=== PATIENT | male | born 1955 | race Two or more races ===

== ENCOUNTER 2019-05-26 14:26 | Emergency (ER) | payer MEDICAID, OTHER ==
[~2019-05-26] VITALS: Ht 170.2 cm; Wt 77.1 kg
[~2019-05-26 14:26] MED LIST: ALBUTEROL SULF8.5 GM INH; AMBIEN5 MG ORAL; BENZTROPINE MESY1 MG PO; BUPROPION XL150 MG ORAL; FISH OIL 1,0001 EAC5 ORAL; FOLIC ACID1 MG ORAL; IBUPROFEN200 MG ORAL; IMODIUM2 MG ORAL; LATUDA20 MG PO; LEVAQUIN500 MG ORAL; LIPITOR10 MG ORAL; LOMOTIL TABLET1 EACH ORAL; LORAZEPAM1 MG ORAL; MINTOX MAXIMUM355 ML PO; MIRTAZAPINE30 MG ORAL; NORVASC5 MG ORAL; OMEPRAZOLE40 M1 ORAL; PROAIR HFA8.5 GM INH; PROPRANOLOL HCL10 MG ORAL; RISPERDAL2 MG ORAL; SYNTHROID50 MCG ORAL; TRAMADOL HCL50 MG ORAL; VITAMIN B-1100 MG ORAL; VOLTAREN-XR100 MG PO; WELLBUTRIN SR100 MG ORAL; ZITHROMAX250 MG ORAL; trazodone PO
--- NOTE | 2019-05-26 15:00 | NUR ---
ED Nurse Note: Patient found on the floor in front of ED, face down. AAO x1 at this moment; unable to answer questions. Patient was placed in hospital gown, cont. child monitor and cont. pulse ox. No respiratory distress noted at this time, patient is saturating 93% on room air. Patient vomiting; ERMD at bedside, aware.
--- NOTE | 2019-05-26 15:13 | NUR ---
ED Nurse Note: Patient taken down to CT via gurney.
[2019-05-26 15:17] VITALS: BP 121/75
[2019-05-26 15:49] LABS: BASOPHILS % (AUTO) 1.2 % (0.0-2.0); EOSINOPHILS % (AUTO) 1.3 % (0.0-3.0); HEMATOCRIT 48.9 % (42.0-52.0); HEMOGLOBIN 17.1 G/DL (14.2-18.0); LYMPHOCYTES % (AUTO) 37.2 % (20.0-45.0); MEAN CORPUSCULAR VOLUME 94 FL (80-99); MONOCYTES % (AUTO) 4.9 % (1.0-10.0); NEUTROPHILS % (AUTO) 55.4 % (45.0-75.0); PLATELET COUNT 378 K/UL (150-450); RED BLOOD COUNT 5.18 M/UL (4.70-6.10); RED CELL DISTRIBUTION WIDTH 10.7 % (11.6-14.8); WHITE BLOOD COUNT 9.7 K/UL (4.8-10.8)
[2019-05-26 15:50] LABS: ANION GAP 17 mmol/L (5-15); BLOOD UREA NITROGEN 7 mg/dL (7-18); CALCIUM 9.4 MG/DL (8.5-10.1); CARBON DIOXIDE 21 MMOL/L (21-32); CHLORIDE 103 MMOL/L (98-107); CREATININE 0.5 MG/DL (0.55-1.30); POTASSIUM 4.7 MMOL/L (3.5-5.1); SODIUM 141 MMOL/L (136-145)
[2019-05-26 15:55] LABS: ALANINE AMINOTRANSFERASE 30 U/L (12-78); ALBUMIN 3.6 G/DL (3.4-5.0); ALBUMIN/GLOBULIN RATIO 0.9 (1.0-2.7); ALKALINE PHOSPHATASE 119 U/L (46-116); ASPARTATE AMINO TRANSFERASE 47 U/L (15-37); BILIRUBIN,TOTAL 0.3 MG/DL (0.2-1.0)
--- NOTE | 2019-05-26 15:56 | NUR ---
ED Nurse Note: EKG done. Patient asleep, arousable to verbal stimuli. Unable to provide iurine at this time. No s/s pain/discomfort at this time. VSS. Will continue to monitor.
--- NOTE | 2019-05-26 16:11 | Diagnostic Imaging Report ---
Indications: Altered level of consciousness Technique: Spiral acquisitions obtained through the brain. Angled axial and coronal 5 x 5 mm slices were reconstructed. Total dose length product 1098 mGycm. CTDI vol(s) 53 mGy. Dose reduction achieved using automated exposure control Comparison: None. Findings: No acute intracranial hemorrhage or edema. No mass effect nor midline shift. There is minimal age-related prominence of the ventricles and extra axial CSF spaces. Old lacunar infarct versus prominent perivascular space is seen in the left basal ganglia. Orellana-white differentiation is normal. The calvarium is intact. The mastoids are clear. The visualized sinuses are clear. Impression: Chronic and age-related changes Negative for acute intracranial bleed or mass effect The CT scanner at [facility] is accredited by the [employer] and the scans are performed using protocols designed to limit radiation exposure to as low as reasonably achievable to attain images of sufficient resolution adequate for diagnostic evaluation.
--- NOTE | 2019-05-26 16:17 | Emergency Room Report ---
History of Present Illness General Chief Complaint: Generalized Weakness Source: Patient Present Illness HPI . 64-year-old male presents ED for evaluation of syncopal fall. Was found down in front of emergency room. Brought in by security. Patient vomiting. Lethargic. Not answering questions. Notes nausea. Denies headache. Denies chest pain or shortness of breath. Unable to provide any additional history at this time. No other aggravating relieving factors. Denies any other associated symptoms Allergies: Coded Allergies: No Known Allergies (Unverified , 02/11/14) Patient History Past Medical History: HTN, asthma, seizures Past Surgical History: none Pertinent Family History: none Social History: Reports: alcohol use; Denies: smoking, drug use Immunizations: UTD Reviewed Nursing Documentation: PMH: Agreed; PSxH: Agreed Nursing Documentation-PMH Past Medical History Deferred: Pt Cognitively Impaired Hx Cardiac Problems: Yes - HIGH CHOLESTEROL, HEP C Hx Hypertension: Yes Hx Pacemaker: No - HEP C Hx Asthma: Yes Hx Cancer: No Hx Gastrointestinal Problems: Yes Hx Neurological Problems: Yes Hx Parkinson's Disease: Yes Hx Seizures: Yes Review of Systems All Other Systems: negative except mentioned in HPI Physical Exam Vital Signs Date Time Temp Pulse Resp B/P (MAP) Pulse Ox O2 Delivery O2 Flow Rate FiO2 05/26/19 14:45 98.6 97 18 119/74 (89) 98 Room Air Sp02 EP Interpretation: reviewed, normal General Appearance: GCS 15, non-toxic, lethargic Head: normocephalic, atraumatic Eyes: bilateral eye normal inspection, bilateral eye PERRL ENT: hearing grossly normal, normal pharynx, no angioedema, normal voice Neck: full range of motion, supple/symm/no masses Respiratory: chest non-tender, lungs clear, normal breath sounds, speaking full sentences Cardiovascular #1: regular rate, rhythm, no edema Cardiovascular #2: 2+ carotid (R), 2+ carotid (L), 2+ radial (R), 2+ radial (L) , 2+ dorsalis pedis (R), 2+ dorsalis pedis (L) Gastrointestinal: normal bowel sounds, non tender, soft, non-distended, no guarding, no rebound Rectal: deferred Genitourinary: normal inspection, no CVA tenderness Musculoskeletal: back normal, normal range of motion, gait/station normal, non- tender Neurologic: alert, motor strength/tone normal, oriented x3, sensory intact, responsive, speech normal Psychiatric: other - lethargic Reflexes: 3+ bicep (R), 3+ bicep (L), 3+ tricep (R), 3+ tricep (L), 3+ knee (R) , 3+ knee (L) Skin: no rash Lymphatic: no adenopathy Medical Decision Making Diagnostic Impression: Primary Impression: Acute alcoholic intoxication Qualified Codes: F10.929 - Alcohol use, unspecified with intoxication, unspecified ER Course Hospital Course 64-year-old male presents ED found down. Altered. Differential diagnoses include: Psychosis, EtOH, drug abuse Clinical course patient placed on stretcher. On court recording monitor. After initial history and physical ordered labs, IV fluids, EKG, CT brain. Labs reviewed-electrolytes okay, no leukocytosis, hemoglobin/hematocrit stable, ETOH > 200 EKG - NSR, no acute ischemic changes interpreted by me CT brain shows no acute pathology Patient now alert oriented. Vitals stable. Came to credit front office developer angry and yelling very agitated. I asked patient to lower voice and remain calm he started becoming very threatening to myself and nursing staff. When we explained we will call security patient walked out without receiving his discharge papers i. I feel this is a highly complex case requiring extensive working including EKG/Rhythm strip, Xray/CT/US, Blood/urine lab work, repeat exams while in ED, and administration of strong opiates/narcotics for pain control, admission to hospital or close patient follow up. Diagnosis - acute alcohol intoxication Stable and discharged to home. Followup with PMD. Return to ED if symptoms recur or worsen Labs Test 05/26/19 15:00 White Blood Count 9.7 K/UL (4.8-10.8) Red Blood Count 5.18 M/UL (4.70-6.10) Hemoglobin 17.1 G/DL (14.2-18.0) Hematocrit 48.9 % (42.0-52.0) Mean Corpuscular Volume 94 FL (80-99) Mean Corpuscular Hemoglobin 33.1 PG (27.0-31.0) Mean Corpuscular Hemoglobin Concent 35.1 G/DL (32.0-36.0) Red Cell Distribution Width 10.7 % (11.6-14.8) Platelet Count 378 K/UL (150-450) Mean Platelet Volume 4.4 FL (6.5-10.1) Neutrophils (%) (Auto) 55.4 % (45.0-75.0) Lymphocytes (%) (Auto) 37.2 % (20.0-45.0) Monocytes (%) (Auto) 4.9 % (1.0-10.0) Eosinophils (%) (Auto) 1.3 % (0.0-3.0) Basophils (%) (Auto) 1.2 % (0.0-2.0) Sodium Level 141 MMOL/L (136-145) Potassium Level 4.7 MMOL/L (3.5-5.1) Chloride Level 103 MMOL/L (98-107) Carbon Dioxide Level 21 MMOL/L (21-32) Anion Gap 17 mmol/L (5-15) Blood Urea Nitrogen 7 mg/dL (7-18) Creatinine 0.5 MG/DL (0.55-1.30) Estimat Glomerular Filtration Rate > 60 mL/min (>60) Glucose Level 120 MG/DL (74-106) Calcium Level 9.4 MG/DL (8.5-10.1) Total Bilirubin 0.3 MG/DL (0.2-1.0) Aspartate Amino Transf (AST/SGOT) 47 U/L (15-37) Alanine Aminotransferase (ALT/SGPT) 30 U/L (12-78) Alkaline Phosphatase 119 U/L (46-116) Troponin I 0.000 ng/mL (0.000-0.056) Total Protein 7.5 G/DL (6.4-8.2) Albumin 3.6 G/DL (3.4-5.0) Globulin 3.9 g/dL Albumin/Globulin Ratio 0.9 (1.0-2.7) Salicylates Level 4.5 ug/mL (2.8-20) Acetaminophen Level < 2 MCG/ML (10-30) Serum Alcohol 269 mg/dL EKG Diagnostic Results Rate: normal Rhythm: NSR ST Segments: no acute changes ASA given to the pt in ED: No Rhythm Strip Diag. Results EP Interpretation: yes Rhythm: NSR, no PVC's, no ectopy CT/MRI/US Diagnostic Results CT/MRI/US Diagnostic Results : Imaging Test Ordered: CT head Impression Comparison: None. Findings: No acute intracranial hemorrhage or edema. No mass effect nor midline shift. There is minimal age-related prominence of the ventricles and extra axial CSF spaces. Old lacunar infarct versus prominent perivascular space is seen in the left basal ganglia. Orellana-white differentiation is normal. The calvarium is intact. The mastoids are clear. The visualized sinuses are clear. Impression: Chronic and age-related changes Negative for acute intracranial bleed or mass effect Last Vital Signs Date Time Temp Pulse Resp B/P (MAP) Pulse Ox O2 Delivery O2 Flow Rate FiO2 05/26/19 15:17 98.6 77 18 121/75 98 Room Air Status: improved Disposition: HOME, SELF-CARE Condition: Stable Jay Ch MD May 26, 2019 16:17
== END 2019-05-26 16:45 | disposition home or self-care (01) ==
LOC: EMR 16:45
DX: F10.129 Alcohol abuse with intoxication, unspecified (principal); I10 Essential (primary) hypertension; E78.00 Pure hypercholesterolemia, unspecified; Z86.19 Personal history of other infectious and parasitic diseases; G20 Parkinson's disease
CPT/HCPCS: 36415; 70450; 80053; 80307; 84484; 85025; 93005; 96361; 96374; G0480; G0481; J2405; J7030; Z7502; 99284

== ENCOUNTER 2019-08-17 01:34 | Emergency (ER) | payer MEDICAID ==
[~2019-08-17] VITALS: Ht 165.1 cm; Wt 68.0 kg
[2019-08-17 01:45] VITALS: BP 122/76
--- NOTE | 2019-08-17 01:45 | NUR ---
ED Nurse Note: Pt brought into ED by STEPHANIE RA 861 for c/o back and chest pain s/p fall. Pt had unwitnessed fall from ground level around 0100. No obvious trauma noted. Pt is aaox4, breathing is normal and unlabored, no cardiac distress.
--- NOTE | 2019-08-17 02:08 | Emergency Room Report ---
History of Present Illness General Chief Complaint: Multiple Trauma/Fall Source: Patient Present Illness HPI 64-year-old male presents the ED status post fall. Brought in by EMS. Reportedly had fall tonight. Landed on his chest. Complaining of chest wall pain and right hip pain. Dull, 7 out of 10, nonradiating. Positive EtOH. Questionable LOC. Denies drug use. Denies nausea or vomiting. No other aggravating relieving factors. Denies any other associated symptoms Allergies: Coded Allergies: No Known Allergies (Unverified , 02/11/14) COVID-19 Screening Contact w/high risk pt: No Recent Travel to affected area: No Experienced COVID-19 symptoms?: No COVID-19 Testing performed BUSHEL WORKER: No Patient History Past Medical History: HTN, asthma, GERD, psych hx Pertinent Family History: none Social History: Reports: alcohol use; Denies: smoking, drug use Immunizations: UTD Reviewed Nursing Documentation: PMH: Agreed; PSxH: Agreed Nursing Documentation-PMH Hx Cardiac Problems: Yes - HIGH CHOLESTEROL, HEP C Hx Hypertension: Yes Hx Pacemaker: No - HEP C Hx Asthma: Yes Hx Cancer: No Hx Gastrointestinal Problems: Yes History Of Psychiatric Problem: Yes Hx Neurological Problems: Yes Hx Parkinson's Disease: Yes Hx Seizures: Yes Review of Systems All Other Systems: negative except mentioned in HPI Physical Exam Vital Signs Date Time Temp Pulse Resp B/P (MAP) Pulse Ox O2 Delivery O2 Flow Rate FiO2 08/17/19 01:36 98.4 78 18 122/76 (91) 95 Room Air Sp02 EP Interpretation: reviewed, normal General Appearance: no apparent distress, alert, GCS 15, non-toxic Head: normocephalic, atraumatic Eyes: bilateral eye normal inspection, bilateral eye PERRL ENT: hearing grossly normal, normal pharynx, no angioedema, normal voice Neck: full range of motion, supple/symm/no masses Respiratory: lungs clear, normal breath sounds, speaking full sentences, other - reproducible chest wall pain Cardiovascular #1: regular rate, rhythm, no edema Cardiovascular #2: 2+ carotid (R), 2+ carotid (L), 2+ radial (R), 2+ radial (L) , 2+ dorsalis pedis (R), 2+ dorsalis pedis (L) Gastrointestinal: normal bowel sounds, non tender, soft, non-distended, no guarding, no rebound Rectal: deferred Genitourinary: normal inspection, no CVA tenderness Musculoskeletal: back normal, normal range of motion, gait/station normal, tender - R hip Neurologic: alert, motor strength/tone normal, oriented x3, sensory intact, responsive, speech normal Psychiatric: judgement/insight normal, memory normal, mood/affect normal, no suicidal/homicidal ideation Reflexes: 3+ bicep (R), 3+ bicep (L), 3+ tricep (R), 3+ tricep (L), 3+ knee (R) , 3+ knee (L) Lymphatic: no adenopathy Medical Decision Making Diagnostic Impression: Primary Impression: Acute alcoholic intoxication Qualified Codes: F10.929 - Alcohol use, unspecified with intoxication, unspecified Additional Impression: Multiple injuries due to trauma ER Course Hospital Course 64 yo M presents with chest wall pain, R hip pain s/p Fall. + ETOH Differential diagnoses include: Fracture, dislocation, sprain, contusion Clinical course Patient placed on stretcher. After initial history and physical, I ordered CT head, CXR and Xray R hip Xrays read shows no acute fracture/dislocation. CT Head negative Patient allowed to sleep. Given food. Observed on monitor car operator with stable vitals. Now alert and oriented x3. Clinically sober. Safe for discharge close outpatient follow-up. Diagnosis - alcohol intoxication, multiple injuries due to trauma Stable and discharged to home. apply ice, keep elevated. weight bear as tolerated. Followup with PMD. Return to ED if symptoms recur or worsen Chest X-Ray Diagnostic Results Chest X-Ray Diagnostic Results : Chest X-Ray Ordered: Yes # of Views/Limited/Complete: 1 View Indication: Chest Pain EP Interpretation: Yes Interpretation: no consolidation, no effusion, no pneumothorax, no acute cardiopulmonary disease Impression: No acute disease Electronically Signed by: Electronically signed by Jay Ch MD Other X-Ray Diagnostic Results Other X-Ray Diagnostic Results : X-Ray ordered: R hip # of Views/Limited Vs Complete: 3 View Indication: Pain EP Interpretation: Yes Interpretation: no dislocation, no soft tissue swelling, no fractures Impression: No acute disease Electronically Signed by: Electronically signed by Jay Ch MD CT/MRI/US Diagnostic Results CT/MRI/US Diagnostic Results : Imaging Test Ordered: CT Head Impression no acute process Last Vital Signs Date Time Temp Pulse Resp B/P (MAP) Pulse Ox O2 Delivery O2 Flow Rate FiO2 08/17/19 01:45 98.4 77 18 122/76 95 Room Air Status: improved Disposition: HOME, SELF-CARE Condition: Stable Referrals: OTHER,REFERRING (PCP) Jay Ch MD August 17, 2019 02:08
--- NOTE | 2019-08-17 02:42 | Diagnostic Imaging Report ---
EXAM: CT Head Without Intravenous Contrast CLINICAL HISTORY: FALL TECHNIQUE: Axial computed tomography images of the head/brain without intravenous contrast. CTDI is 107 mGy and DLP is 2171 mGy-cm. One or more of the following dose reduction techniques were used: automated exposure control, adjustment of the mA and/or kV according to patient size, use of iterative reconstruction technique. COMPARISON: No relevant prior studies available. FINDINGS: Brain: Parenchymal atrophy. No intracranial hemorrhage, mass-effect, or edema. Chronic lacunar infarct within the left basal ganglia. Ventricles: No hydrocephalus. Bones/joints: Unremarkable. Soft tissues: Unremarkable. Sinuses: Unremarkable as visualized. Mastoid air cells: Unremarkable as visualized. IMPRESSION: No acute findings in the head/brain.
--- NOTE | 2019-08-17 02:43 | Diagnostic Imaging Report ---
EXAM: XR Right Hip With Pelvis When Performed, 2 or 3 Views CLINICAL HISTORY: FALL TECHNIQUE: Two or three views of the right hip with pelvis when performed. COMPARISON: No relevant prior studies available. FINDINGS: Bones/joints: Unremarkable. No acute fracture. No dislocation. Soft tissues: Unremarkable. IMPRESSION: No fracture or malalignment.
--- NOTE | 2019-08-17 02:44 | Diagnostic Imaging Report ---
EXAM: XR Chest, 1 View CLINICAL HISTORY: FALL TECHNIQUE: Frontal view of the chest. COMPARISON: No relevant prior studies available. FINDINGS: Lungs: Unremarkable. No consolidation. Pleural space: No pleural effusion. No pneumothorax. Heart: Unremarkable. No cardiomegaly. Bones/joints: No fracture. IMPRESSION: No radiographically evident traumatic injury.
[2019-08-17 05:35] VITALS: BP 125/91
--- NOTE | 2019-08-17 05:35 | NUR ---
ER DISCHARGE NOTE: Patient is cleared to be discharged per ERMD, pt is aox4, on room air, with stable vital signs. pt was given dc instructions, pt was able to verbalize understanding, pt id band removed. pt is able to ambulate with steady gait. pt took all belongings.
[2019-08-17] MEDS ORDERED: VISTARIL25 M1 PO ×2 (21:34)
[2019-08-17] MEDS ORDERED: FAMOTIDINE20 MG ORAL ×2 (21:34)
[2019-08-17] MEDS ORDERED: ONDANSETRON ODT4 MG BC ×2 (21:34)
[2019-08-18] MEDS ORDERED: LIBRIUM25 MG ORAL (00:43)
== END 2019-08-17 05:35 | disposition home or self-care (01) ==
LOC: EDUNIT# 01:34 → EDBD 01:34 → EMR 01:45
DX: F10.129 Alcohol abuse with intoxication, unspecified (principal); M25.551 Pain in right hip; R07.9 Chest pain, unspecified; K21.9 Gastro-esophageal reflux disease without esophagitis; E78.00 Pure hypercholesterolemia, unspecified; Z86.19 Personal history of other infectious and parasitic diseases; G20 Parkinson's disease; G40.909 Epilepsy, unspecified, not intractable, without status epilepticus
CPT/HCPCS: 70450; 71045; 73501; Z7502; 99284

== ENCOUNTER 2019-08-17 17:23 | Emergency (ER) | payer MEDICAID ==
[~2019-08-17] VITALS: Ht 175.3 cm; Wt 71.2 kg
--- NOTE | 2019-08-17 17:23 | NUR ---
ED Nurse Note: PT arrived with RA 861 d/t alcohol withdrawal. pt denies pain at this time. pt reports his last alcoholic beverage was this morning and he states that he has been experiencing tremors. pt vss stable, no acute distress noted at this time pt skin is warm to touch; no diaphoresis. pt is aox4, room air sating at 99%. pt is calm and cooperative. no delusions thoughts.
[2019-08-17 17:24] VITALS: BP 118/70
--- NOTE | 2019-08-17 17:25 | NUR ---
ED Nurse Note: PT report back pain, pt also states that he is having troubel breathing. rechecked O2 sat at bedside. pt shows 91% on room air. informed ermd; pt placed on 1 L Nasal cannula. iV line established; patent and intact. Blood specimen sent to lab.
--- NOTE | 2019-08-17 17:26 | NUR ---
ED Nurse Note: Pt O2 is at 94% on 1 L nasal cannula, lights dimmed for pt comfort
[2019-08-17] MEDS ORDERED: LORazepam Inj 2mg/ml 1ml IV ONE (17:30)
[2019-08-17] MEDS ORDERED: Thiamine HCl 100 MG in D5W 55 ML IV ONE (17:30)
--- NOTE | 2019-08-17 17:33 | Emergency Room Report ---
History of Present Illness General Chief Complaint: To Be Triaged Source: Patient, EMS Present Illness HPI Patient is brought from a motel by EMS complaining of alcohol withdrawal.. He states he is having alcohol withdrawal at this time. Last time he was drinking alcohol was . He was seen last night for back pain. He had a CT of the head chest x-ray and hip x-ray. He was discharged early this morning. No laboratory was performed. He is complaining about nausea. He is not vomiting. There is no hematemesis. He denies melena. There is no head trauma. He states that he has had seizures in the past but is not taking medication. He denies recent seizure. The patient's been seen in the past for acute alcohol intoxication. In addition in the past he is was seen for suicidal ideation. In 2015 he was placed on hold and transferred to [facility]. Patient denies suicidal ideation at this time. No fevers, sore throat, chest pain, palpitations, vomiting, diarrhea, dysuria, abdominal pain, shortness of breath, rashes, visual changes, dizziness, headache. History of hepatitis C. Allergies: Coded Allergies: No Known Allergies (Unverified , 02/11/14) COVID-19 Screening Contact w/high risk pt: No Recent Travel to affected area: No Experienced COVID-19 symptoms?: No COVID-19 Testing performed BAG HANGER: No Patient History Past Medical History: see triage record Social History: Reports: alcohol use; Denies: drug use Social History Narrative in motel for some reason with problem with room mate Reviewed Nursing Documentation: PMH: Agreed; PSxH: Agreed Nursing Documentation-PMH Hx Hypertension: Yes Hx Pacemaker: No - HEP C Hx Asthma: Yes Hx Cancer: No Hx Gastrointestinal Problems: Yes History Of Psychiatric Problem: Yes Hx Neurological Problems: Yes Hx Parkinson's Disease: Yes Hx Seizures: Yes Review of Systems All Other Systems: negative except mentioned in HPI Physical Exam Vital Signs Date Time Temp Pulse Resp B/P (MAP) Pulse Ox O2 Delivery O2 Flow Rate FiO2 08/17/19 17:18 98.4 98 29 118/70 (86) 99 Room Air Sp02 EP Interpretation: reviewed, normal General Appearance: no apparent distress, GCS 15, non-toxic, other - Alcohol on breath Head: normocephalic Eyes: bilateral eye PERRL, bilateral eye EOMI, bilateral eye Scleral Injection ENT: moist mucus membranes - No lingual macerations Neck: full range of motion, supple Respiratory: chest non-tender, lungs clear, normal breath sounds Cardiovascular #1: regular rate, rhythm, no edema Cardiovascular #2: 2+ radial (R) Gastrointestinal: normal inspection, non tender, no mass, non-distended, abnormal bowel sounds - Decreased Genitourinary: no CVA tenderness Musculoskeletal: back normal, normal range of motion, gait/station normal Neurologic: alert, DTRs symmetric, oriented x3, sensory intact, cerebellar normal, speech normal Psychiatric: no suicidal/homicidal ideation, anxious Skin: no rash, warm/dry Medical Decision Making Diagnostic Impression: Primary Impression: Acute alcoholic intoxication Qualified Codes: F10.929 - Alcohol use, unspecified with intoxication, unspecified ER Course Patient here with a complaint of alcohol withdrawal. He states his last drink was last . He does smell of alcohol at this time. Differential includes alcohol withdrawal, alcohol intoxication, electrolyte imbalance, acute myocardial infarction, alcoholic gastritis, anxiety amongst others. Evaluation with EKG and labs. Treatment with IV hydration, thiamine and a dose of Ativan. EKG without injury. Prior chest x-ray reviewed and unremarkable. CT the head also reviewed and unremarkable. Labs significant for elevated transaminases and elevated blood alcohol of 274. Patient sleeping after IV hydration, thiamine and Ativan. Not tremulous, oriented, no delusions. Not tachycardic. Ate several sandwiches and drink liquids with tolerating oral intake without difficulty. Discussed treatment plan with patient. He is requesting to stay overnight. Discussed that based on his blood alcohol level and symptoms and signs at this time I felt he was stable for outpatient observation and treatment. Advised patient that he needed to have follow-up with Alcoholics Anonymous and also his private physician. He is familiar with this organization. Discussed medications that should help him with his symptoms at this time. No medical emergency at this time. Patient stable for outpatient observation and treatment. Laboratory Tests Test 08/17/19 17:30 08/17/19 19:50 White Blood Count 6.9 K/UL (4.8-10.8) Red Blood Count 4.21 M/UL (4.70-6.10) L Hemoglobin 14.0 G/DL (14.2-18.0) L Hematocrit 43.6 % (42.0-52.0) Mean Corpuscular Volume 104 FL (80-99) H Mean Corpuscular Hemoglobin 33.3 PG (27.0-31.0) H Mean Corpuscular Hemoglobin Concent 32.1 G/DL (32.0-36.0) Red Cell Distribution Width 13.9 % (11.6-14.8) Platelet Count 398 K/UL (150-450) Mean Platelet Volume 5.1 FL (6.5-10.1) L Neutrophils (%) (Auto) 53.6 % (45.0-75.0) Lymphocytes (%) (Auto) 38.5 % (20.0-45.0) Monocytes (%) (Auto) 5.9 % (1.0-10.0) Eosinophils (%) (Auto) 0.5 % (0.0-3.0) Basophils (%) (Auto) 1.6 % (0.0-2.0) Prothrombin Time 9.4 SEC (9.30-11.50) Prothrombin Time INR 0.8 (0.9-1.1) L Sodium Level 143 MMOL/L (136-145) Potassium Level 3.9 MMOL/L (3.5-5.1) Chloride Level 101 MMOL/L (98-107) Carbon Dioxide Level 26 MMOL/L (21-32) Anion Gap 17 mmol/L (5-15) H Blood Urea Nitrogen 14 mg/dL (7-18) Creatinine 1.0 MG/DL (0.55-1.30) Estimated Glomerular Filtration Rate > 60 mL/min (>60) Glucose Level 81 MG/DL (74-106) Calcium Level 8.6 MG/DL (8.5-10.1) Magnesium Level 2.1 MG/DL (1.8-2.4) Total Bilirubin 0.6 MG/DL (0.2-1.0) Aspartate Amino Transferase (AST) 329 U/L (15-37) H Alanine Aminotransferase (ALT) 145 U/L (12-78) H Alkaline Phosphatase 169 U/L (46-116) H Total Creatine Kinase 186 U/L (26-308) Troponin I 0.003 ng/mL (0.000-0.056) Total Protein 7.5 G/DL (6.4-8.2) Albumin 3.6 G/DL (3.4-5.0) Globulin 3.9 g/dL Albumin/Globulin Ratio 0.9 (1.0-2.7) L Lipase 247 U/L (73-393) Salicylates Level 4.6 ug/mL (2.8-20) Acetaminophen Level < 2 MCG/ML (10-30) L Serum Alcohol 274 mg/dL Urine Color Yellow Urine Appearance Clear Urine pH 6 (4.5-8.0) Urine Specific [place] 1.020 (1.005-1.035) Urine Protein 3+ (NEGATIVE) H Urine Glucose (UA) Negative (NEGATIVE) Urine Ketones 4+ (NEGATIVE) H Urine Blood 2+ (NEGATIVE) H Urine Nitrite Negative (NEGATIVE) Urine Bilirubin Negative (NEGATIVE) Urine Urobilinogen 4 MG/DL (0.0-1.0) H Urine Leukocyte Esterase 1+ (NEGATIVE) H Urine RBC 2-4 /HPF (0 - 0) H Urine WBC 5-10 /HPF (0 - 0) H Urine Squamous Epithelial Cells Occasional /LPF Urine Bacteria Few /HPF (NONE) Urine Mucus Many /LPF (NONE/OCC) H Urine Opiates Screen Negative (NEGATIVE) Urine Barbiturates Screen Negative (NEGATIVE) Phencyclidine (PCP) Screen Negative (NEGATIVE) Urine Amphetamines Screen Negative (NEGATIVE) Urine Benzodiazepines Screen Positive (NEGATIVE) H Urine Cocaine Screen Negative (NEGATIVE) Urine Marijuana (THC) Screen Negative (NEGATIVE) EKG Diagnostic Results Rate: normal Rhythm: NSR ST Segments: no acute changes - QT prolonged Rhythm Strip Diag. Results EP Interpretation: yes Rhythm: NSR, no PVC's, no ectopy Last Vital Signs Date Time Temp Pulse Resp B/P (MAP) Pulse Ox O2 Delivery O2 Flow Rate FiO2 08/17/19 21:50 98.4 90 20 120/82 99 Room Air Status: improved Disposition: HOME, SELF-CARE Condition: Improved Shivam Rosas MD August 17, 2019 17:33
--- NOTE | 2019-08-17 17:38 | NUR ---
ED Nurse Note: Pt offered jeremy per pt request
[2019-08-17 17:47] LABS: BASOPHILS % (AUTO) 1.6 % (0.0-2.0); EOSINOPHILS % (AUTO) 0.5 % (0.0-3.0); HEMATOCRIT 43.6 % (42.0-52.0); LYMPHOCYTES % (AUTO) 38.5 % (20.0-45.0); MEAN CORPUSCULAR VOLUME 104 FL (80-99); MONOCYTES % (AUTO) 5.9 % (1.0-10.0); NEUTROPHILS % (AUTO) 53.6 % (45.0-75.0); PLATELET COUNT 398 K/UL (150-450); RED BLOOD COUNT 4.21 M/UL (4.70-6.10); RED CELL DISTRIBUTION WIDTH 13.9 % (11.6-14.8); WHITE BLOOD COUNT 6.9 K/UL (4.8-10.8)
[2019-08-17 17:52] LABS: INR 0.8 (0.9-1.1)
--- NOTE | 2019-08-17 17:53 | NUR ---
ED Nurse Note: pt shows right forearm skin lesion of unknown etiology. injury is a non opened wound. appears to be previous abrasion. redness/scabbing noted.
[2019-08-17 17:54] LABS: ANION GAP 17 mmol/L (5-15); BLOOD UREA NITROGEN 14 mg/dL (7-18); CALCIUM 8.6 MG/DL (8.5-10.1); CARBON DIOXIDE 26 MMOL/L (21-32); CHLORIDE 101 MMOL/L (98-107); POTASSIUM 3.9 MMOL/L (3.5-5.1); SODIUM 143 MMOL/L (136-145)
[2019-08-17 17:58] LABS: ALANINE AMINOTRANSFERASE 145 U/L (12-78); ALBUMIN 3.6 G/DL (3.4-5.0); ALBUMIN/GLOBULIN RATIO 0.9 (1.0-2.7); ALKALINE PHOSPHATASE 169 U/L (46-116); ASPARTATE AMINO TRANSFERASE 329 U/L (15-37); BILIRUBIN,TOTAL 0.6 MG/DL (0.2-1.0); CREATINE KINASE 186 U/L (26-308)
[2019-08-17] MEDS ORDERED: Sodium Bicarbonate 100 ML in D5W 1000ml 1,000 ML IV SCH (18:45)
--- NOTE | 2019-08-17 18:47 | NUR ---
ED Nurse Note: PER ermd do not administer bicarb with D5W; missed ordered on incorrect pt. orders not carried out.
--- NOTE | 2019-08-17 18:50 | NUR ---
ED Nurse Note: pt in bed currently asleep. continuing iv fluid orders. pt saturation at 99% 1 L nasal cannula. no acute distress noted.
--- NOTE | 2019-08-17 18:57 | NUR ---
HAND-OFF: Report given to DINO Delacruz endorsed that ERMD verbally ordered to not administer D5W with bicarb due to incorrect pt. no further orders at this time.
--- NOTE | 2019-08-17 19:50 | NUR ---
ED Nurse Note: Urine collected and sent to lab.
[2019-08-17 20:30] LABS: APPEARANCE,URINE CLEAR; BILIRUBIN, URINE NEGATIVE (NEGATIVE); GLUCOSE, URINE (UA) NEGATIVE (NEGATIVE); KETONES,URINE 4+ (NEGATIVE); LEUKOCYTE ESTERASE ,URINE 1+ (NEGATIVE); NITRITE,URINE NEGATIVE (NEGATIVE); PH,URINE 6 (4.5-8.0); PROTEIN,URINE 3+ (NEGATIVE); UROBILINOGEN,URINE 4 MG/DL (0.0-1.0)
[2019-08-17 20:36] LABS: COLOR,URINE YELLOW
[2019-08-17] MEDS ORDERED: VISTARIL25 M1 PO ×2 (21:34)
[2019-08-17] MEDS ORDERED: ONDANSETRON ODT4 MG BC ×2 (21:34)
[2019-08-17] MEDS ORDERED: FAMOTIDINE20 MG ORAL ×2 (21:34)
[2019-08-17 21:50] VITALS: BP 120/82
--- NOTE | 2019-08-17 21:50 | NUR ---
ER DISCHARGE NOTE: Patient is cleared to be discharged per ERMD, pt is aox4, on room air, with stable vital signs. pt was given dc and prescription instructions, pt was able to verbalize understanding, pt id band and iv site removed without complications. pt is able to ambulate with steady gait. pt took all belongings.
[2019-08-18] MEDS ORDERED: LIBRIUM25 MG ORAL (00:43)
== END 2019-08-17 21:50 | disposition home or self-care (01) ==
LOC: EDBD 17:23 → EMR 17:45
DX: F10.129 Alcohol abuse with intoxication, unspecified (principal); R11.0 Nausea; I10 Essential (primary) hypertension; Z86.19 Personal history of other infectious and parasitic diseases
CPT/HCPCS: 36415; 80053; 80307; 81003; 82550; 83690; 83735; 84484; 85025; 85610; 93005; 96361; 96365; 96375; G0480; G0481; J7030; Z7502; 99284

== ENCOUNTER → 2019-08-18 | Emergency (ER) | payer MEDICAID ==
[~2019-08-18] VITALS: Ht 170.2 cm; Wt 81.6 kg
[~2019-08-18] MED LIST changes: +FAMOTIDINE20 MG ORAL; +LIBRIUM25 MG ORAL; +LORazepam Inj 2mg/ml 1ml IM ONE; +ONDANSETRON ODT4 MG BC; +VISTARIL25 M1 PO; +chlordiazePOXIDE 25mg Cap ORAL ONE
[2019-08-18 00:35] VITALS: BP 134/86
--- NOTE | 2019-08-18 00:35 | NUR ---
ED Nurse Note: Pt brought into ED by STEPHANIE KHAN 62 for c/o alcohol withdrawl and tremors. Pt is saying he needs ativan and can't stop shaking. [place] [facility] [place]. Pt is aaox4, no respiratory or cardiac distress and is ambulatory with steady gait.
--- NOTE | 2019-08-18 00:40 | Emergency Room Report ---
History of Present Illness General Chief Complaint: Alcohol Intoxication Source: Patient Present Illness HPI This is a 64-year-old male who is an alcoholic. He called 911 complaint of alcohol withdrawal. He said he last drank over 36 hours ago. He was just here and discharged a few hours ago. Around 5:30 PM his alcohol level was 274. He said he has not drank since then. He said he felt shaky. No fever chills but no nausea no vomiting. He said he wants some Ativan. Denies any other complaint. Denies suicidal thoughts homicidal thought. Nothing made it better. Nothing made it worse. Allergies: Coded Allergies: No Known Allergies (Unverified , 02/11/14) COVID-19 Screening Contact w/high risk pt: No Recent Travel to affected area: No Experienced COVID-19 symptoms?: No COVID-19 Testing performed EN[employer]ELOPE ADDRESSER: No Patient History Past Medical History: see triage record, old chart reviewed Past Surgical History: none Pertinent Family History: none Social History: Reports: alcohol use Immunizations: other Reviewed Nursing Documentation: PMH: Agreed; PSxH: Agreed Nursing Documentation-PMH Hx Hypertension: Yes Hx Pacemaker: No - HEP C Hx Asthma: Yes Hx Cancer: No Hx Gastrointestinal Problems: Yes Hx Neurological Problems: Yes Hx Parkinson's Disease: Yes Hx Seizures: Yes Review of Systems Eye: Denies: eye pain, blurred vision ENT: Denies: ear pain, nose congestion, throat swelling Respiratory: Denies: cough, shortness of breath Cardiovascular: Denies: chest pain, palpitations Gastrointestinal: Denies: abdominal pain, diarrhea, nausea, vomiting Musculoskeletal: Denies: back pain, joint pain Skin: Denies: rash Neurological: Denies: headache, numbness Endocrine: Denies: increased thirst, increased urine Hematologic/Lymphatic: Denies: easy bruising All Other Systems: negative except mentioned in HPI Physical Exam Vital Signs Date Time Temp Pulse Resp B/P (MAP) Pulse Ox O2 Delivery O2 Flow Rate FiO2 08/18/19 00:33 98.8 107 18 134/86 (102) 97 Room Air Vitals with mild tachycardia Sp02 EP Interpretation: reviewed, normal General Appearance: well appearing, no apparent distress, alert Head: normocephalic, atraumatic Eyes: bilateral eye PERRL, bilateral eye EOMI ENT: hearing grossly normal, normal pharynx Neck: full range of motion, supple, no meningismus Respiratory: chest non-tender, lungs clear, normal breath sounds Cardiovascular #1: regular rate, rhythm, no murmur Gastrointestinal: normal bowel sounds, non tender, no mass, no organomegaly, no bruit, non-distended Musculoskeletal: back normal, normal range of motion, gait/station normal Neurologic: other - Tremulous, mild Psychiatric: mood/affect normal Medical Decision Making Diagnostic Impression: Primary Impression: Alcohol withdrawal Qualified Codes: F10.230 - Alcohol dependence with withdrawal, uncomplicated ER Course Patient with mild alcohol withdrawal symptoms. No evidence of suicidal thoughts homicidal thought. Vitals otherwise stable. Better with Ativan and Librium. Will discharge home. Last Vital Signs Date Time Temp Pulse Resp B/P (MAP) Pulse Ox O2 Delivery O2 Flow Rate FiO2 08/18/19 00:33 98.8 107 18 134/86 (102) 97 Room Air Status: improved Disposition: HOME, SELF-CARE Condition: Stable Scripts Chlordiazepoxide (Chlordiazepoxide HCl) 25 Mg Capsule 25 MG ORAL THREE TIMES A DAY, #15 CAP 0 Refills Prov: Jam Lees MD 08/18/19 Additional Instructions: Stop drinking alcohol. Go to rehab. Follow-up with your doctor in 7 days but return if symptoms worsen. Jam Lees MD August 18, 2019 00:40
[2019-08-18 02:05] VITALS: BP 129/80
--- NOTE | 2019-08-18 02:05 | NUR ---
ER DISCHARGE NOTE: Patient is cleared to be discharged per ERMD, pt is aox4, on room air, with stable vital signs. pt was given dc and prescription instructions, pt was able to verbalize understanding, pt id band removed. pt is able to ambulate with steady gait. pt took all belongings.
== END | disposition home or self-care (01) ==
LOC: EDUNIT# 00:26 → EDBD 00:26 → EMR 00:38
DX: F10.230 Alcohol dependence with withdrawal, uncomplicated (principal); I10 Essential (primary) hypertension; Z86.19 Personal history of other infectious and parasitic diseases; G20 Parkinson's disease; G40.909 Epilepsy, unspecified, not intractable, without status epilepticus
CPT/HCPCS: 96372; Z7502; 99283

== ENCOUNTER 2019-08-28 16:33 | Emergency (ER) | payer MEDICAID ==
[~2019-08-28] VITALS: Ht 167.6 cm; Wt 59.0 kg
[~2019-08-28 16:33] MED LIST changes: -LORazepam Inj 2mg/ml 1ml IM ONE; -chlordiazePOXIDE 25mg Cap ORAL ONE
[2019-08-28 16:37] VITALS: BP 98/63
[2019-08-28] MEDS ORDERED: ATIVAN0.5 MG ORAL (16:42)
[2019-08-28] MEDS ORDERED: METOPROLOL SUCC25 MG ORAL (16:42)
--- NOTE | 2019-08-28 16:47 | NUR ---
ED Nurse Note: Pt brought in by RA 8[facility] from a hotel due to behavioral complaint. Per EMS, pt is complaining of lower back pain and called his PCP and stated that he wants to kill himself but has no specific plans. Pt is placed on 5150 HOLD by [employer]. Toni Lowe at the bed side.
--- NOTE | 2019-08-28 17:00 | NUR ---
ED Nurse Note: Belongings placed on psych locker #3.
--- NOTE | 2019-08-28 17:13 | NUR ---
ED Nurse Note: Surrendered pt's roman $955 with wrist watch and necklace with cross pendant to [employer].
--- NOTE | 2019-08-28 17:33 | NUR ---
ED Nurse Note: Collected blood then sent. Pt unable to provide urine sample at this time.
--- NOTE | 2019-08-28 17:34 | Emergency Room Report ---
History of Present Illness General Chief Complaint: Back Pain-No Injury Source: Patient (Michelle Jaimes) Present Illness HPI 64 YO Male presents to the ED c/o 01/09 in severity Lower back pain with radiation to his right leg. Pt. reports chronic back pain. Recently hospitalized at [facility] 07/31 for 19 days regarding back pain. Pt. reports 10 days ago he Fell and had exacerbation of his pain. Pt. reports due to chronic pain he is now having SI. He is "tired of being in pain" pt. is also reporting being kicked out of his house recently. Pt. reports hx of Depression, on Wellbutrin and Ativan pt. reports 1 PSA years ago where he attempted to lacerate his left wrist. Pt. reports he called his psychologist today and spoke with her. His psychologist contacted EMS. Pt. arrived by EMS accompanied by [employer] and was subsequently placed on 5150 hold by [employer]. Denies numbness tingling or loss of sensation or gross motor movements of the extremities, incontinence of bowel or bladder. Denies CP, Palpitations, LOC, AMS, dizziness, Changes in Vision, weakness or a sudden severe headache. Denies neck pain. Pt. also with hx of Hep. C. He denies ETOH or Drug use. (Michelle Jaimes) Allergies: Coded Allergies: No Known Allergies (Unverified , 02/11/14) COVID-19 Screening Contact w/high risk pt: No Recent Travel to affected area: No Experienced COVID-19 symptoms?: No COVID-19 Testing performed [employer]OOM TEACHER: No (Michelle Jaimes) Patient History Past Medical History: see triage record, psych hx - depression, other - chronic low back pain. Past Surgical History: none Pertinent Family History: none Social History: Reports: alcohol use Reviewed Nursing Documentation: PMH: Agreed; PSxH: Agreed (Michelle Jaimes) Nursing Documentation-PMH Hx Hypertension: Yes Hx Pacemaker: No - HEP C Hx Asthma: Yes Hx Cancer: No Hx Gastrointestinal Problems: Yes Hx Neurological Problems: Yes Hx Parkinson's Disease: Yes Hx Seizures: Yes (Michelle Jaimes) Review of Systems All Other Systems: negative except mentioned in HPI (Michelle Jaimes) Physical Exam Vital Signs Date Time Temp Pulse Resp B/P (MAP) Pulse Ox O2 Delivery O2 Flow Rate FiO2 08/28/19 16:37 98.4 103 16 98/63 (75) 98 Room Air Sp02 EP Interpretation: reviewed, normal General Appearance: no apparent distress, alert, GCS 15, non-toxic, thin Head: normocephalic, atraumatic Eyes: bilateral eye normal inspection, bilateral eye PERRL ENT: hearing grossly normal, normal voice Neck: full range of motion Respiratory: chest non-tender, lungs clear, normal breath sounds, no wheezing, speaking full sentences Cardiovascular #1: regular rate, rhythm, no edema, normal capillary refill Gastrointestinal: normal bowel sounds, non tender, soft, non-distended, no guarding Rectal: deferred Genitourinary: normal inspection, no CVA tenderness Musculoskeletal: normal range of motion, gait/station normal, tender - TTP to the L-spine, midline as well as paraspinal musculature. radiation to right hip. FROM with pain. POC is lying flat. Neurologic: alert, motor strength/tone normal, oriented x3, sensory intact, responsive, speech normal Psychiatric: judgement/insight normal, memory normal Suicide Risk Assessment: Suicidal Ideation: Yes Had intent to initiate attempt: Yes Pt's plan for suicide attempt: Yes - Pt. indicates slashing his neck Has means to complete attempt: Yes - Pt. Skin: abrasion - multiple abrasions in different stages of healing on the extremities. , other - previous wrist laceration scare notable on the left wrist Lymphatic: no adenopathy (Michelle Jaimes) Medical Decision Making PA Attestation Dr. Hyman is my supervising Physician whom patient management has been discussed with. (Michelle Jaimes) PA Attestation I participate in the care of this patient along with TARIK Rojas. Briefly, this is a 64-year-old male presenting for low back pain and suicidality. The patient was placed on a 5150 hold by [employer] after stating that he was so tired of the pain that he was going to kill himself. His psychiatrist contacted EMS and [employer]. He has had previous suicide attempts with self-inflicted lacerations. He arrives intoxicated with elevated alcohol level. A CT scan of his spine was obtained showing L1 superior endplate compression fracture without significant vertebral height loss. Patient will be allowed to metabolize the alcohol and have a recheck prior to psychiatric placement for evaluation of suicidality. He was given oral potassium for slightly low levels. (Moe Hyman MD) Diagnostic Impression: Primary Impression: Lumbar compression fracture Qualified Codes: S32.010A - Wedge compression fracture of first lumbar vertebra, initial encounter for closed fracture Additional Impressions: Behavioral change Acute alcoholic intoxication Qualified Codes: F10.920 - Alcohol use, unspecified with intoxication, uncomplicated Suicidal ideation ER Course 64 YO Male presents to the ED c/o 01/09 in severity Lower back pain with radiation to his right leg. Pt. reports chronic back pain. Recently hospitalized at [facility] 07/31 for 19 days regarding back pain. Pt. reports 10 days ago he Fell and had exacerbation of his pain. Pt. reports due to chronic pain he is now having SI. He is "tired of being in pain" pt. is also reporting being kicked out of his house recently. Pt. reports hx of Depression, on Wellbutrin and Ativan pt. reports 1 PSA years ago where he attempted to lacerate his left wrist. Pt. reports he called his psychologist today and spoke with her. His psychologist contacted EMS. Pt. arrived by EMS accompanied by [employer] and was subsequently placed on 5150 hold by [employer]. Denies numbness tingling or loss of sensation or gross motor movements of the extremities, incontinence of bowel or bladder. Denies CP, Palpitations, LOC, AMS, dizziness, Changes in Vision, weakness or a sudden severe headache. Denies neck pain. Pt. also with hx of Hep. C. He denies ETOH or Drug use. Pt is tearful with depressed affect. Ddx considered but are not limited to OD, SI/HI, psychosis, UTI, intoxication, Fracture, contusion, spinal chord injury, sciatica, chronic pain syndrome, alcoholism just to name a few. Vital signs: are WNL, pt. is afebrile H&PE are most consistent with behavioral/mental health issue ORDERS: -CBC, CMP: WNL, mild hypokalemia -UA: negative for infection see results attached. -UDS: negative -Salicylates and Acetaminophen - no acute intoxication. - Serum ETOH: 356 - Ct L-Spine No Contrast: L1 compression fx. ED INTERVENTIONS: - - 1mg Ativan - pt. was becoming agitated with bedside sitter. DISPOSITION: PT. signed out to attending physician. Labs Test 08/28/19 17:30 08/28/19 18:17 White Blood Count 6.4 K/UL (4.8-10.8) Red Blood Count 3.67 M/UL (4.70-6.10) Hemoglobin 12.5 G/DL (14.2-18.0) Hematocrit 38.7 % (42.0-52.0) Mean Corpuscular Volume 105 FL (80-99) Mean Corpuscular Hemoglobin 33.9 PG (27.0-31.0) Mean Corpuscular Hemoglobin Concent 32.2 G/DL (32.0-36.0) Red Cell Distribution Width 13.3 % (11.6-14.8) Platelet Count 478 K/UL (150-450) Mean Platelet Volume 4.8 FL (6.5-10.1) Neutrophils (%) (Auto) 36.3 % (45.0-75.0) Lymphocytes (%) (Auto) 53.6 % (20.0-45.0) Monocytes (%) (Auto) 7.6 % (1.0-10.0) Eosinophils (%) (Auto) 0.4 % (0.0-3.0) Basophils (%) (Auto) 2.1 % (0.0-2.0) Sodium Level 143 MMOL/L (136-145) Potassium Level 3.2 MMOL/L (3.5-5.1) Chloride Level 104 MMOL/L (98-107) Carbon Dioxide Level 22 MMOL/L (21-32) Anion Gap 17 mmol/L (5-15) Blood Urea Nitrogen 10 mg/dL (7-18) Creatinine 1.2 MG/DL (0.55-1.30) Estimat Glomerular Filtration Rate > 60 mL/min (>60) Glucose Level 82 MG/DL (74-106) Calcium Level 8.4 MG/DL (8.5-10.1) Total Bilirubin 0.4 MG/DL (0.2-1.0) Aspartate Amino Transf (AST/SGOT) 77 U/L (15-37) Alanine Aminotransferase (ALT/SGPT) 78 U/L (12-78) Alkaline Phosphatase 177 U/L (46-116) Total Protein 7.1 G/DL (6.4-8.2) Albumin 3.5 G/DL (3.4-5.0) Globulin 3.6 g/dL Albumin/Globulin Ratio 1.0 (1.0-2.7) Salicylates Level 4.0 ug/mL (2.8-20) Acetaminophen Level < 2 MCG/ML (10-30) Serum Alcohol 356 mg/dL Urine Opiates Screen Negative (NEGATIVE) Urine Barbiturates Screen Negative (NEGATIVE) Phencyclidine (PCP) Screen Negative (NEGATIVE) Urine Amphetamines Screen Negative (NEGATIVE) Urine Benzodiazepines Screen Negative (NEGATIVE) Urine Cocaine Screen Negative (NEGATIVE) Urine Marijuana (THC) Screen Negative (NEGATIVE) (Michelle Jaimes) ER Course This patient was signed out to me. Patient presents with alcohol intoxication and suicidal thoughts. He was expressing suicidal thoughts and please place him on a 5150. Alcohol level is now less than 100. Potassium is normal. His compression fracture is old and chronic in nature. No acute process. He is medically cleared for psychiatric evaluation. (Jam Lees MD) ER Course Reevaluation 2:24 PM patient was cleared by Dr. Sharif. hold lifted. Patient will follow-up with ortho for his compression fracture. Disposition home w/ return precautions No evidence of cauda equina. (Dhaval Kumari MD) CT/MRI/US Diagnostic Results CT/MRI/US Diagnostic Results : Imaging Test Ordered: CT L-Spine No Contrast Impression "IMPRESSION: 1. L1 superior endplate compression fracture without significant vertebral body height loss and without involvement of the posterior aspect of the vertebral body. 2. Spine straightening, which could represent patient positioning or muscle spasm. 3. No high-grade canal or foraminal stenosis. 4. Correlate radicular symptoms with level by level analysis above. 5. Osteopenia and mild age-related degenerative spine findings." Per official radiology report- Please see report for specific details. (Michelle Jaimes) Last Vital Signs Date Time Temp Pulse Resp B/P (MAP) Pulse Ox O2 Delivery O2 Flow Rate FiO2 08/28/19 16:37 98.4 103 16 98/63 (75) 98 Room Air (Michelle Jaimes) Status: improved (Jam Lees MD) Disposition: HOME, SELF-CARE Condition: Stable Signed Out To: Dr. Hyman (Jaimes,Michelle PA) Referrals: [facility],REFERRING (PCP) Orthopedic Urgent Care Patient Instructions: Alcohol Use Disorder, Back Pain, Adult, Spinal Compression Fracture Additional Instructions: The patient was provided with discharge instructions, notified to follow-up with a primary care doctor and or specialist in the next 24-48 hours, and to return to the ED if they have worsening of their symptoms. Please note that this report is being documented using DRAGON technology. This can lead to erroneous entry secondary to incorrect interpretation by the dictating instrument. PLEASE FOLLOW-UP WITH ORTHOPAEDICS TO EVALUATE YOUR COMPRESSION FRACTURE. PLEASE RETURN TO ED FOR NUMBNESS WEAKNESS OF LOWER EXTREMITIES, AND DIFFICULTY URINATING, WELL RECTAL NUMBNESS Michelle Jaimes August 28, 2019 17:34 Moe Hyman MD August 28, 2019 22:31 Jam Lees MD August 29, 2019 03:20 Dhaval Kumari MD August 29, 2019 14:28
[2019-08-28 17:56] LABS: BASOPHILS % (AUTO) 2.1 % (0.0-2.0); EOSINOPHILS % (AUTO) 0.4 % (0.0-3.0); HEMATOCRIT 38.7 % (42.0-52.0); HEMOGLOBIN 12.5 G/DL (14.2-18.0); LYMPHOCYTES % (AUTO) 53.6 % (20.0-45.0); MEAN CORPUSCULAR VOLUME 105 FL (80-99); MONOCYTES % (AUTO) 7.6 % (1.0-10.0); NEUTROPHILS % (AUTO) 36.3 % (45.0-75.0); PLATELET COUNT 478 K/UL (150-450); RED BLOOD COUNT 3.67 M/UL (4.70-6.10); RED CELL DISTRIBUTION WIDTH 13.3 % (11.6-14.8); WHITE BLOOD COUNT 6.4 K/UL (4.8-10.8)
[2019-08-28 17:57] LABS: ANION GAP 17 mmol/L (5-15); BLOOD UREA NITROGEN 10 mg/dL (7-18); CALCIUM 8.4 MG/DL (8.5-10.1); CARBON DIOXIDE 22 MMOL/L (21-32); CHLORIDE 104 MMOL/L (98-107); CREATININE 1.2 MG/DL (0.55-1.30); POTASSIUM 3.2 MMOL/L (3.5-5.1); SODIUM 143 MMOL/L (136-145)
[2019-08-28 18:03] LABS: ALANINE AMINOTRANSFERASE 78 U/L (12-78); ALBUMIN 3.5 G/DL (3.4-5.0); ALKALINE PHOSPHATASE 177 U/L (46-116); ASPARTATE AMINO TRANSFERASE 77 U/L (15-37); BILIRUBIN,TOTAL 0.4 MG/DL (0.2-1.0)
--- NOTE | 2019-08-28 18:11 | Diagnostic Imaging Report ---
EXAM: CT Lumbar Spine Without Intravenous Contrast CLINICAL HISTORY: PAIN TECHNIQUE: Axial computed tomography images of the lumbar spine without intravenous contrast. CTDI is 6 mGy and DLP is 222 mGy-cm. One or more of the following dose reduction techniques were used: automated exposure control, adjustment of the mA and/or kV according to patient size, use of iterative reconstruction technique. Coronal and sagittal reformatted images were created and reviewed. Axial reformatted images were created and reviewed. COMPARISON: No relevant prior studies available. FINDINGS: Vertebrae: L1 superior endplate compression fracture without significant vertebral body height loss and without involvement of the posterior aspect of the vertebral body. Spine straightening, which could represent patient positioning or muscle spasm. Osteopenia and mild age- related degenerative spine findings. Soft tissues: Unremarkable. DISCS/SPINAL CANAL/NEURAL FORAMINA: L1-L2: Unremarkable No stenosis. L2-L3: Small broad-based disc bulge mildly eccentric to the left foraminal zone 3 no canal stenosis. No significant foraminal stenosis. L3-L4: Superficial small disc bulge. Ligament flavum hypertrophy. Likely contact bilateral traversing L4 nerve roots in the lateral recesses. No significant canal stenosis. Moderate bilateral foraminal stenosis. L4-L5: Superficial small disc bulge. Ligamentum flavum operative field. Likely contact of bilateral traversing L5 nerve roots in the lateral recesses. No significant canal stenosis. Moderate bilateral foraminal stenosis. L5-S1: No significant canal or foraminal stenosis. Other findings: ASVD. IMPRESSION: 1. L1 superior endplate compression fracture without significant vertebral body height loss and without involvement of the posterior aspect of the vertebral body. 2. Spine straightening, which could represent patient positioning or muscle spasm. 3. No high-grade canal or foraminal stenosis. 4. Correlate radicular symptoms with level by level analysis above. 5. Osteopenia and mild age-related degenerative spine findings. <MYCVCSECTION> Communications: 08/28/19 18:09 Call Doctor Regarding Trauma, called TARIK Jaimes on 08/27 18:09 (-07:00)
--- NOTE | 2019-08-28 18:20 | NUR ---
ED Nurse Note: Urine collected then sent.
--- NOTE | 2019-08-28 19:11 | NUR ---
HAND-OFF: Report given to sydnie SUN.
--- NOTE | 2019-08-28 19:15 | NUR ---
ED Nurse Note: Report received from DINO Peralta.
--- NOTE | 2019-08-28 19:15 | NUR ---
ED Nurse Note: Sitter is bedside with pt. Safety measures in place. Will cont. to monitor.
[2019-08-28 19:19] LABS: APPEARANCE,URINE CLEAR; BILIRUBIN, URINE NEGATIVE (NEGATIVE); COLOR,URINE PALE YELLOW; GLUCOSE, URINE (UA) NEGATIVE (NEGATIVE); KETONES,URINE NEGATIVE (NEGATIVE); LEUKOCYTE ESTERASE ,URINE NEGATIVE (NEGATIVE); NITRITE,URINE NEGATIVE (NEGATIVE); PH,URINE 6.5 (4.5-8.0); PROTEIN,URINE 1+ (NEGATIVE); UROBILINOGEN,URINE NORMAL MG/DL (0.0-1.0)
[2019-08-28] MEDS ORDERED: LORazepam Inj 2mg/ml 1ml IV ONE (19:30)
--- NOTE | 2019-08-28 19:30 | NUR ---
ED Nurse Note: Pt is asking for ativan to help him relax, ERPA aware. Pt yelling he wants to kill himself.
[2019-08-28 21:00] VITALS: BP 110/72
--- NOTE | 2019-08-28 21:00 | NUR ---
ED Nurse Note: Pt is in bed with eyes closed, NAD. Sitter is bedside with pt. Will continue to monitor.
--- NOTE | 2019-08-28 22:25 | NUR ---
ED Nurse Note: Pt is awake and speaking with sitter who is bedside. Pt is in no acute distress and is being cooperative at this time.
--- NOTE | 2019-08-29 02:15 | NUR ---
ED Nurse Note: Repeat labs drawn and sent to lab.
[2019-08-29 02:30] VITALS: BP 121/68
--- NOTE | 2019-08-29 02:30 | NUR ---
ED Nurse Note: Pt is awake and alert. VSS. Sitter is at bedside with suicide precautions in place. NAD.
[2019-08-29 02:45] LABS: POTASSIUM 3.6 MMOL/L (3.5-5.1)
--- NOTE | 2019-08-29 05:00 | NUR ---
ED Nurse Note: Pt is being calm and cooperative, resting in bed. NAD. Sitter and suicide precuations remain in place.
--- NOTE | 2019-08-29 06:20 | NUR ---
ED Nurse Note: Pt is shaking and asking for ativan to help him relax. ERMD aware.
[2019-08-29] MEDS ORDERED: LORazepam Inj 2mg/ml 1ml IV ONE ×2 (06:45→12:15)
--- NOTE | 2019-08-29 07:08 | NUR ---
HAND-OFF: Report given to DINO Celis.
[2019-08-29 07:54] VITALS: BP 118/65
--- NOTE | 2019-08-29 07:55 | NUR ---
ED Nurse Note:pt. is sleeping ,no signs of distress
[2019-08-29] MEDS ORDERED: chlordiazePOXIDE 25mg Cap ORAL ONE (08:30)
--- NOTE | 2019-08-29 12:31 | NUR ---
ED Nurse Note:PT. REQUESTED MORE ATIVAN FOR ALCOHOL WITHDRAWAL
[2019-08-29 13:35] VITALS: BP 117/62
--- NOTE | 2019-08-29 14:26 | NUR ---
ED Nurse Note:pt. was evaluated by dr. Sharif and cleared for d/c 51/50 hold was lifted by
[2019-08-29] MEDS ORDERED: IBUPROFEN600 M1 ORAL (14:29)
[2019-08-29 14:45] VITALS: BP 117/62
--- NOTE | 2019-08-29 14:50 | NUR ---
ED Nurse Note:pt's valubles were returned from hospital safe to him
--- NOTE | 2019-08-29 22:15 | Consultation ---
DATE OF CONSULTATION: 08/29/2019 CONSULTING PHYSICIAN: Meryl Sharif MD. HISTORY OF PRESENT ILLNESS: Patient is a 64-year-old male with a history of depression, anxiety who has been admitted to the hospital for medical stabilization. Patient was placed on a 5150 for danger to self after he spoke to his therapist and stated that he is fed up and he cannot tolerate his back pain. He recently had a fall and back injury. He lives in a motel. Patient is not endorsing any suicidal or homicidal ideation. He is now depressed. He is on anti-depressant. He has a psychiatrist outpatient. He has a daughter and ex- that live in [place]. He is moving into a new place close to [place]. He is on disability. He is not endorsing any suicidal or homicidal ideation. PAST PSYCHIATRIC HISTORY: Depression, anxiety. Has a psychiatrist. Denied any suicidal attempt in the past. PAST MEDICAL HISTORY: Back surgery, back pain, ALLERGIES: Chart was reviewed. SUBSTANCE USE HISTORY: No known history of illicit drug use or alcohol. MENTAL STATUS EXAMINATION: Patient is alert and oriented times self, place, situation, and date. Mood is depressed. Affect is constricted, congruent with mood. Thought process, liner and goal oriented. Thought content, there is no suicidal or homicidal ideation. No psychotic symptoms noted. Cognition is intact. Insight and judgment are fair. ASSESSMENT: Derby I Major depressive disorder. Derby II Deferred. Derby III Back pain. Derby IV Low to moderate. Derby V 65. PLAN: . Meryl Sharif M.D. DR: LANRE JOB#: [id number] CC: KEVIN
== END 2019-08-29 15:04 | disposition home or self-care (01) ==
LOC: EDBD 16:33 → EMR 16:54
DX: S32.010A Wedge compression fracture of first lumbar vertebra, initial encounter for closed fracture (principal); F10.920 Alcohol use, unspecified with intoxication, uncomplicated; R45.851 Suicidal ideations; T14.8XXA Other injury of unspecified body region, initial encounter; I10 Essential (primary) hypertension; J45.909 Unspecified asthma, uncomplicated; G20 Parkinson's disease; G40.909 Epilepsy, unspecified, not intractable, without status epilepticus; Z79.899 Other long term (current) drug therapy; W01.0XXA Fall on same level from slipping, tripping and stumbling without subsequent striking against object, initial encounter; Y93.9 Activity, unspecified; Y92.9 Unspecified place or not applicable; Y90.8 Blood alcohol level of 240 mg/100 ml or more
CPT/HCPCS: 36415; 72131; 80053; 80307; 81001; 84132; 85025; 96374; 96375; G0480; G0481; Z7502; 99285; J8499

== ENCOUNTER → 2019-09-03 | Emergency (ER) | payer MEDICAID ==
[~2019-09-03] VITALS: Ht 182.9 cm; Wt 81.6 kg
[~2019-09-03] MED LIST changes: +ATIVAN0.5 MG ORAL; +IBUPROFEN600 M1 ORAL; +METOPROLOL SUCC25 MG ORAL
[2019-09-03 13:30] VITALS: BP 106/60
--- NOTE | 2019-09-03 13:57 | Emergency Room Report ---
History of Present Illness General Chief Complaint: Altered Level of Consciousness Source: Medical Record, EMS Present Illness HPI 64 YO male presents to the ED brought by ambulance for AMS. Pt. only arousable to loud or painful stimuli. Pt. is unable to provide sufficient amt. of detail to questions. He answers with mostly yes or no. He states he is having back and leg pain that has been longstanding. Pt. does not know if he drank today. Per EMS pt. was found altered outside liquor store with blood sugar of 47 on scene. Pt. given Dextrose 10 and had blood sugar repeat of 149, per EMS no significant change in mental status. Pt. has hx of being rx'd Librium. Pt. unable to quantify pain at this time. HPI and ROS limited. Allergies: Coded Allergies: No Known Allergies (Unverified , 02/11/14) COVID-19 Screening Contact w/high risk pt: No Recent Travel to affected area: No Experienced COVID-19 symptoms?: No COVID-19 Testing performed LEAD SOFTWARE ENGINEER: No Patient History Past Medical History: see triage record, old chart reviewed Past Surgical History: none Pertinent Family History: none Reviewed Nursing Documentation: PMH: Agreed; PSxH: Agreed Nursing Documentation-PMH Past Medical History: No History, Except For Hx Hypertension: Yes Hx Pacemaker: No - HEP C Hx Asthma: Yes Hx Cancer: No Hx Gastrointestinal Problems: Yes Hx Neurological Problems: Yes Hx Parkinson's Disease: Yes Hx Seizures: Yes Review of Systems All Other Systems: limited - Pt. altered mental status Physical Exam Vital Signs Date Time Temp Pulse Resp B/P (MAP) Pulse Ox O2 Delivery O2 Flow Rate FiO2 09/03/19 13:25 97.5 90 16 106/60 (75) 98 Room Air Sp02 EP Interpretation: reviewed, normal General Appearance: no apparent distress, alert, GCS 15, non-toxic Head: normocephalic, atraumatic Eyes: bilateral eye normal inspection, bilateral eye PERRL, bilateral eye other - disconjugate gaze, ENT: hearing grossly normal, normal voice Neck: full range of motion, no bony tend Respiratory: lungs clear, normal breath sounds, no respiratory distress, no accessory muscle use, no wheezing, speaking full sentences Cardiovascular #1: regular rate, rhythm, no edema, normal capillary refill Gastrointestinal: normal bowel sounds, non tender, soft, non-distended, no guarding Musculoskeletal: normal range of motion, gait/station normal, non-tender, other - PT. in kyphosis Splint Neurologic: alert - decreased- only alert to loud (verbal) and painful stimuli , other - Pt. requires repeated stimuli to arouse. very lethargic Psychiatric: judgement/insight normal Skin: no rash, normal color, other - no open wounds,abrasions or bruises Medical Decision Making PA Attestation Dr. Herron is my supervising Physician whom patient management has been discussed with. Diagnostic Impression: Primary Impression: Acute alcoholic intoxication Qualified Codes: F10.920 - Alcohol use, unspecified with intoxication, uncomplicated Additional Impression: Benzodiazepine intoxication ER Course 64 YO male presents to the ED brought by ambulance for AMS. Pt. only arousable to loud or painful stimuli. Pt. is unable to provide sufficient amt. of detail to questions. He answers with mostly yes or no. He states he is having back and leg pain that has been longstanding. Pt. does not know if he drank today. Per EMS pt. was found altered outside liquor store with blood sugar of 47 on scene. Pt. given Dextrose 10 and had blood sugar repeat of 149, per EMS no significant change in mental status. Pt. has hx of being rx'd Librium. Pt. unable to quantify pain at this time. HPI and ROS limited. Ddx considered but are not limited to hypoglycemia, ETOH intoxication, SAH, Stroke, OD, SI/HI, psychosis, UTI, electrolyte imbalance, encephalopathy, other- intoxication just to name a few Vital signs: are WNL, pt. is afebrile H&PE are most consistent with Decreased mental status in pt. with non-traumatic appearance. ORDERS: -CBC,: WNL/ mild anemia -CMP: Elevated LFT's- mild -UA: negative for infection see results attached. -UDS: POSITIVE for Benzo's -Serum ETOH: 216 -Salicylates and Acetaminophen - no acute intoxication. ED INTERVENTIONS: - 1 Liter NS Bolus DISPOSITION: Pt. Pending clinical sobriety. PT. allowed to rest/ eat. Continues to be extremely Lethargic. Signed out to attending physician pending increase in alertness. Labs Test 09/03/19 14:05 09/03/19 18:09 White Blood Count 7.5 K/UL (4.8-10.8) Red Blood Count 3.99 M/UL (4.70-6.10) Hemoglobin 13.4 G/DL (14.2-18.0) Hematocrit 39.4 % (42.0-52.0) Mean Corpuscular Volume 99 FL (80-99) Mean Corpuscular Hemoglobin 33.7 PG (27.0-31.0) Mean Corpuscular Hemoglobin Concent 34.1 G/DL (32.0-36.0) Red Cell Distribution Width 12.1 % (11.6-14.8) Platelet Count 404 K/UL (150-450) Mean Platelet Volume 4.2 FL (6.5-10.1) Neutrophils (%) (Auto) 57.2 % (45.0-75.0) Lymphocytes (%) (Auto) 35.6 % (20.0-45.0) Monocytes (%) (Auto) 4.6 % (1.0-10.0) Eosinophils (%) (Auto) 1.6 % (0.0-3.0) Basophils (%) (Auto) 1.0 % (0.0-2.0) Sodium Level 137 MMOL/L (136-145) Potassium Level 3.8 MMOL/L (3.5-5.1) Chloride Level 99 MMOL/L (98-107) Carbon Dioxide Level 24 MMOL/L (21-32) Anion Gap 14 mmol/L (5-15) Blood Urea Nitrogen 10 mg/dL (7-18) Creatinine 0.9 MG/DL (0.55-1.30) Estimat Glomerular Filtration Rate > 60 mL/min (>60) Glucose Level 122 MG/DL (74-106) Calcium Level 8.9 MG/DL (8.5-10.1) Total Bilirubin 0.5 MG/DL (0.2-1.0) Aspartate Amino Transf (AST/SGOT) 135 U/L (15-37) Alanine Aminotransferase (ALT/SGPT) 83 U/L (12-78) Alkaline Phosphatase 165 U/L (46-116) Ammonia 23 umol/L (11-32) Total Protein 7.0 G/DL (6.4-8.2) Albumin 3.4 G/DL (3.4-5.0) Globulin 3.6 g/dL Albumin/Globulin Ratio 0.9 (1.0-2.7) Thyroid Stimulating Hormone (TSH) 2.115 uiU/mL (0.358-3.740) Serum Alcohol 216 mg/dL Urine Color Pale yellow Urine Appearance Clear Urine pH 6.5 (4.5-8.0) Urine Specific [place] 1.010 (1.005-1.035) Urine Protein Negative (NEGATIVE) Urine Glucose (UA) Negative (NEGATIVE) Urine Ketones 2+ (NEGATIVE) Urine Blood Negative (NEGATIVE) Urine Nitrite Negative (NEGATIVE) Urine Bilirubin Negative (NEGATIVE) Urine Urobilinogen Normal MG/DL (0.0-1.0) Urine Leukocyte Esterase Negative (NEGATIVE) Urine Opiates Screen Negative (NEGATIVE) Urine Barbiturates Screen Negative (NEGATIVE) Phencyclidine (PCP) Screen Negative (NEGATIVE) Urine Amphetamines Screen Negative (NEGATIVE) Urine Benzodiazepines Screen Positive (NEGATIVE) Urine Cocaine Screen Negative (NEGATIVE) Urine Marijuana (THC) Screen Negative (NEGATIVE) EKG Diagnostic Results EP Interpretation: Dr. Herron Rate: normal - 88BPM Rhythm: NSR ST Segments: no acute changes Other Impression mildly prolonged QT of 420/508 ASA given to the pt in ED: No PA Scribe Text This Interpretation was scribed by TARIK Jaimes. Chest X-Ray Diagnostic Results Chest X-Ray Diagnostic Results : Chest X-Ray Ordered: Yes # of Views/Limited/Complete: 1 View Indication: Chest Pain EP Interpretation: Yes PA Xray: Interpretation reviewed, by supervising MD, and agrees with findings. Interpretation: no consolidation, no effusion, no pneumothorax, no acute cardiopulmonary disease Impression: No acute disease Electronically Signed by: Michelle Jaimes PA-C CT/MRI/US Diagnostic Results CT/MRI/US Diagnostic Results : Imaging Test Ordered: CT Head NO Contrast Impression " No evidence of acute fracture, hemorrhage, or intracranial process". -- Per official radiology report- Please see report for specific details. Last Vital Signs Date Time Temp Pulse Resp B/P (MAP) Pulse Ox O2 Delivery O2 Flow Rate FiO2 09/03/19 13:25 97.5 90 16 106/60 (75) 98 Room Air Signed Out To: Michelle Lowry Sep 03, 2019 13:57
--- NOTE | 2019-09-03 14:40 | Diagnostic Imaging Report ---
Indication: Chest pain Technique: One view of the chest Comparison: 08/17/2019 Findings: Less optimal inspiration currently. Questionably mildly increased interstitial prominence is noted diffusely. No focal airspace consolidation. No effusion Impression: Questionable mild interstitial prominence, could indicate interstitial infiltrates.
[2019-09-03 14:47] LABS: EOSINOPHILS % (AUTO) 1.6 % (0.0-3.0); HEMATOCRIT 39.4 % (42.0-52.0); HEMOGLOBIN 13.4 G/DL (14.2-18.0); LYMPHOCYTES % (AUTO) 35.6 % (20.0-45.0); MEAN CORPUSCULAR VOLUME 99 FL (80-99); MONOCYTES % (AUTO) 4.6 % (1.0-10.0); NEUTROPHILS % (AUTO) 57.2 % (45.0-75.0); PLATELET COUNT 404 K/UL (150-450); RED BLOOD COUNT 3.99 M/UL (4.70-6.10); RED CELL DISTRIBUTION WIDTH 12.1 % (11.6-14.8); WHITE BLOOD COUNT 7.5 K/UL (4.8-10.8)
[2019-09-03 14:53] LABS: ANION GAP 14 mmol/L (5-15); BLOOD UREA NITROGEN 10 mg/dL (7-18); CALCIUM 8.9 MG/DL (8.5-10.1); CARBON DIOXIDE 24 MMOL/L (21-32); CHLORIDE 99 MMOL/L (98-107); CREATININE 0.9 MG/DL (0.55-1.30); POTASSIUM 3.8 MMOL/L (3.5-5.1); SODIUM 137 MMOL/L (136-145)
[2019-09-03 14:56] LABS: AMMONIA 23 umol/L (11-32)
[2019-09-03 15:06] LABS: ALANINE AMINOTRANSFERASE 83 U/L (12-78); ALBUMIN 3.4 G/DL (3.4-5.0); ALBUMIN/GLOBULIN RATIO 0.9 (1.0-2.7); ALKALINE PHOSPHATASE 165 U/L (46-116); ASPARTATE AMINO TRANSFERASE 135 U/L (15-37); BILIRUBIN,TOTAL 0.5 MG/DL (0.2-1.0)
[2019-09-03 15:40] VITALS: BP 112/72
--- NOTE | 2019-09-03 15:48 | Diagnostic Imaging Report ---
Indications: Altered mental status Technique: Spiral acquisitions obtained through the brain. Angled axial and coronal 5 x 5 mm slices were reconstructed. Total dose length product 1072 mGycm. CTDI vol(s) 53 mGy. Dose reduction achieved using automated exposure control Comparison: 08/17/2019 Findings: There is age-related enlargement of the ventricles and extra-axial CSF spaces. There is minimal periventricular deep white matter low-attenuation, consistent with chronic microvascular ischemic change. No acute intracranial hemorrhage or edema. No mass effect nor midline shift. Normal dubois-white differentiation otherwise. The visualized orbits and sinuses are unremarkable. The calvarium is intact. No significant interim change Impression: Chronic and age-related changes. Negative for acute intracranial bleed or mass effect The CT scanner at [facility] is accredited by the [employer] and the scans are performed using protocols designed to limit radiation exposure to as low as reasonably achievable to attain images of sufficient resolution adequate for diagnostic evaluation.
[2019-09-03 17:41] VITALS: BP 106/60
[2019-09-03 18:28] LABS: APPEARANCE,URINE CLEAR; BILIRUBIN, URINE NEGATIVE (NEGATIVE); COLOR,URINE PALE YELLOW; GLUCOSE, URINE (UA) NEGATIVE (NEGATIVE); KETONES,URINE 2+ (NEGATIVE); LEUKOCYTE ESTERASE ,URINE NEGATIVE (NEGATIVE); NITRITE,URINE NEGATIVE (NEGATIVE); PH,URINE 6.5 (4.5-8.0); PROTEIN,URINE NEGATIVE (NEGATIVE); UROBILINOGEN,URINE NORMAL MG/DL (0.0-1.0)
[2019-09-03 19:26] VITALS: BP 107/74
[2019-09-03 22:00] VITALS: BP 110/87
== END | disposition home or self-care (01) ==
LOC: EDUNIT# 13:20 → EDBD 13:28 → EMR 13:55
DX: F10.129 Alcohol abuse with intoxication, unspecified (principal); T42.4X5A Adverse effect of benzodiazepines, initial encounter; Y92.9 Unspecified place or not applicable; I10 Essential (primary) hypertension; Z86.19 Personal history of other infectious and parasitic diseases; G20 Parkinson's disease; G40.909 Epilepsy, unspecified, not intractable, without status epilepticus; D64.9 Anemia, unspecified
CPT/HCPCS: 36415; 70450; 71045; 80053; 80307; 81003; 82140; 82962; 84443; 85025; 93005; 96360; G0480; J7030; Z7502; 99284

== ENCOUNTER 2019-12-10 14:00 | Emergency (ER) | payer MEDICAID ==
[~2019-12-10] VITALS: Ht 170.2 cm; Wt 72.6 kg
[2019-12-10 14:10] VITALS: BP 128/84
[2019-12-10] MEDS ORDERED: Thiamine HCl 100 MG in D5W 55 ML IVPB ONE (14:15)
[2019-12-10 14:30] LABS: BASOPHILS % (AUTO) 1.3 % (0.0-2.0); EOSINOPHILS % (AUTO) 1.3 % (0.0-3.0); HEMATOCRIT 49.3 % (42.0-52.0); HEMOGLOBIN 16.5 G/DL (14.2-18.0); LYMPHOCYTES % (AUTO) 38.8 % (20.0-45.0); MEAN CORPUSCULAR VOLUME 93 FL (80-99); MONOCYTES % (AUTO) 3.7 % (1.0-10.0); PLATELET COUNT 386 K/UL (150-450); RED CELL DISTRIBUTION WIDTH 13.1 % (11.6-14.8); WHITE BLOOD COUNT 14.4 K/UL (4.8-10.8)
[2019-12-10 14:44] LABS: INR 0.9 (0.9-1.1)
[2019-12-10 14:45] LABS: ANION GAP 18 mmol/L (5-15); BLOOD UREA NITROGEN 16 mg/dL (7-18); CALCIUM 9.9 MG/DL (8.5-10.1); CARBON DIOXIDE 22 MMOL/L (21-32); CHLORIDE 99 MMOL/L (98-107); CREATININE 1.3 MG/DL (0.55-1.30); POTASSIUM 4.6 MMOL/L (3.5-5.1); SODIUM 139 MMOL/L (136-145)
--- NOTE | 2019-12-10 14:52 | Emergency Room Report ---
History of Present Illness General Chief Complaint: Syncope Source: Patient Present Illness HPI 64-year-old male with past medical history of alcohol abuse, depression, anxiety , hypertension presents after syncopal episode this morning. Patient states that he has been drinking because he has been depressed and "wants [his] life to end". He endorses auditory but not visual hallucinations. Of note, he states that he was hospitalized 2 weeks ago at [facility] after he tried to slit his neck. He underwent an operation on the right side of his neck where he was "in the operating room for 2 hours." He denies any pain at this time. He does state that he has been feeling dehydrated and weak with constant falling over the last 2 weeks since he got discharged from the outside hospital. Otherwise denies headache, vision changes, neck pain, abdominal pain, shortness of breath, hemoptysis, nausea vomiting diarrhea, melena or hematochezia. Denies blood thinner use. The patient's symptoms were gradual onset, severity was moderate, duration since 14 days. Quality: Generally weak Of note, he states that he broke his back 3 months ago. He is typically wearing a brace but refuses to. Past medical history: Alcohol abuse, depression, anxiety, hypertension Past surgical history: Right hand surgery, right neck surgery Smoking: Denies Alcohol use: Chronic daily drinking. He states he drinks "too much" Drug use: Denies Review of systems: CONST: No fevers or chills, No night sweats PULMONARY: No productive cough, No shortness of breath CARDIAC: No chest pain, No palpitations GI: No vomiting, No diarrhea , No melena_or_BRBPR : No dysuria, No hematuria, No discharge NEURO: No new_focal_weakness_or_numbness, No confusion, No vision changes 14 point Review of Systems is otherwise negative except per HPI Physical Exam: GENERAL: Awake_alert_ nontoxic, no acute distress Spo2 100% on RA -normal EYES: Extraocular muscles are intact. Conjunctivae clear. Lids without swelling. ENT: External nose and ear normal_in_appearance. Oropharynx clear. Head_ atraumatic, Moist_oral_mucosa. No oral trauma. NECK: No JVD. No meningismus. No thyromegaly. Supple. Trachea midline No hard signs of cervical trauma. No palpable bruit, no thrill, no rapidly expanding arterial hematoma, stridor, drooling, or subcutaneous emphysema. Surgical incision site to the right lateral neck is clean, dry, intact and well- healing. No hoarse voice RESP: Normal respiratory effort. Symmetric rise. No stridor. Clear_to_ auscultation_No_rales_No_wheezes CARDIAC: Regular rate and regular rhythm. No_significant pedal edema. ABDOMEN: Soft. Nondistended. Nontender_No_rebound_or_guarding. MSK: Normal muscle tone, without rigidity. Extremities without asymmetric deformity or swelling. SKIN: Warm and dry. No visible cyanosis or pallor NEUROLOGIC: Alert, oriented x3. Motor_and_sensation_grossly_intact. No truncal ataxia. Gait_normal Psych: Depressed mood and affect, normal judgment and insight +Auditory hallucinations +SI Denies HI - COORDINATION OF CARE Case was discussed with: Patient , Patient's Physician, Psych Any labs and imaging that were ordered were interpreted as part of the medical decision making: Medical Decision Making/Plan: Patient was seen by psychiatry Dr. Sharif due to suicidal ideation. His plan is to again slit his throat or over ingest alcohol to kill himself. He is voluntary and not on a hold. Differential diagnosis includes severe depression, suicidal ideation, bipolar disorder, dehydration, alcohol intoxication, arrhtyhmia, r/o ICH The patient denies recent suicide attempt, overdose, or ingestion but endorses auditory hallucinations and feelings of depression. He exhibits no signs alcohol withdrawal. Is currently intoxicated but GCS 15 with no focal deficits. Labs were ordered for evaluation, and results are reassuring with no evidence of occult overdose, or severe metabolic derangement. Trop negative x 1. EKG shows no obvious signs of TCA overdose however is abnormal for prolonged QTc interval > 500. CT head shows global atrophy, no fracture, no dislocation. No gross intracranial hemorrhage CXR shows no pneumothorax, effusions, or pneumonia. COVID swab is pending. The patient was observed for a period of time in the ED with serial neurologic exams. Psychiatry evaluated the patient and did not recommend 5150 hold. The patients presentation seems to be consistent with suicidal ideation, without any complications such as suicide attempt or overdose. He is willing to get inpatient psychiatric care for his depression and alcohol abuse. ED intervention included magnesium, ASA, and gentle IV fluids. Also received Thiamine as he is an alcoholic. The patient has been stabilized to the best of this emergency department's capabilities. Patient is capitated to [facility] based on his insurance. Appropriate facilities for transfer were discussed and the decision has been made to transfer this patient to [facility]. The receiving facility has the capacity and capabilities to provide care for the patient. I spoke with Dr Mathews who accepted the patient in transfer. The patient has been informed and updated of their current clinical status. The patient has given verbal consent for the transfer. The risks and benefits were explained and the patient verbalizes their understanding. The patient will be transported by ALS Allergies: Coded Allergies: No Known Allergies (Unverified , 02/11/14) COVID-19 Screening Contact w/high risk pt: No Recent Travel to affected area: No Experienced COVID-19 symptoms?: No COVID-19 Testing performed TICKET MAKER: No Nursing Documentation-PMH Past Medical History: Deferred Hx Hypertension: Yes Hx Pacemaker: No - HEP C Hx Asthma: Yes Hx Cancer: No Hx Gastrointestinal Problems: Yes Hx Neurological Problems: Yes Hx Parkinson's Disease: Yes Hx Seizures: Yes Physical Exam Vital Signs Date Time Temp Pulse Resp B/P (MAP) Pulse Ox O2 Delivery O2 Flow Rate FiO2 12/10/19 14:01 98.4 108 17 121/90 (100) 95 Room Air Sp02 EP Interpretation: reviewed, normal Procedures Critical Care Time Critical Care Time Critical Care Statement Organ systems at risk include: cardiac / circulatory / metabolic Critical care performed for 45 minutes. Time is exclusive of separately billable procedures. Time includes: direct patient care, continuous monitoring and multiple patient reassessment, coordination of patient care, review of patient's medical records , medical consultation, family consultation regarding treatment decisions and documentation of patient care. Medical Decision Making Diagnostic Impression: Primary Impression: Syncope Additional Impressions: Generalized weakness Prolonged QT interval Acute alcoholic intoxication Depression GERD (gastroesophageal reflux disease) Psychoses Suicidal ideation Hx TIA/stroke w/o resid EKG Diagnostic Results TARIK Scribe Text 12-lead EKG (interpreted by me) Time: 1358 Indication: Rhythm analysis Tracing visualized and Interpreted by me. Rhythm: Sinus tachycardia Rate: 104 bpm QTc: 523 Morphology: No_significant_ST_elevations_or_depressions, No STEMI Impression: Sinus tachycardia, prolonged QT interval 523 ms Rhythm Strip Diag. Results Rhythm Strip Time: 15:06 EP Interpretation: yes Rate: 99 Rhythm: NSR, no PVC's, no ectopy Chest X-Ray Diagnostic Results Chest X-Ray Diagnostic Results : TARIK Scribe Text Chest X-Ray: Views: 1 view(s) Indication: syncope Findings: Normal heart size. Mediastinum normal. No infiltrate. Impression: No acute disease The X-ray(s) were independently viewed and interpreted contemporaneously Electronically signed by Blanca barahona DO CT/MRI/US Diagnostic Results CT/MRI/US Diagnostic Results : Impression CT Head no Contrast Impression: Chronic and age-related changes. Negative for acute intracranial bleed or mass effect Old left basal ganglia lacunar infarct Reevaluation Time: 15:06 Last Vital Signs Date Time Temp Pulse Resp B/P (MAP) Pulse Ox O2 Delivery O2 Flow Rate FiO2 12/10/19 14:01 98.4 108 17 121/90 (100) 95 Room Air Status: improved Disposition: ADMITTED INPATIENT - [facility] - MD Mathews Admit Decision Time: 15:06 Condition: Stable Referrals: NON PHYSICIAN (PCP) Blanca Morales D.O. Dec 10, 2019 14:52
[2019-12-10 14:56] LABS: ALANINE AMINOTRANSFERASE 31 U/L (12-78); ALBUMIN 3.7 G/DL (3.4-5.0); ALBUMIN/GLOBULIN RATIO 0.9 (1.0-2.7); ALKALINE PHOSPHATASE 96 U/L (46-116); ASPARTATE AMINO TRANSFERASE 49 U/L (15-37); BILIRUBIN,TOTAL 0.4 MG/DL (0.2-1.0); CREATINE KINASE 142 U/L (26-308)
--- NOTE | 2019-12-10 15:33 | Diagnostic Imaging Report ---
Indications: Syncope Technique: Spiral acquisitions obtained through the brain. Angled axial and coronal 5 x 5 mm slices were reconstructed. Total dose length product 1179 mGycm. CTDI vol(s) 53 mGy. Dose reduction achieved using automated exposure control Comparison: None. Findings: No acute intracranial hemorrhage or edema. No mass effect nor midline shift. There is age-related enlargement of the ventricles and extra axial CSF spaces. There is periventricular deep white matter low-attenuation, consistent with chronic microvascular ischemic change. Left basal ganglia lacunar infarct versus prominent perivascular space is again noted. The calvarium is intact. The mastoids are clear. The orbits are unremarkable. There is ethmoid sinus disease. No significant interim change. Impression: Chronic and age-related changes. Negative for acute intracranial bleed or mass effect Old left basal ganglia lacunar infarct The CT scanner at [facility] is accredited by the [employer] and the scans are performed using protocols designed to limit radiation exposure to as low as reasonably achievable to attain images of sufficient resolution adequate for diagnostic evaluation.
[2019-12-10 16:00] VITALS: BP 134/81
[2019-12-10 17:13] LABS: APPEARANCE,URINE CLEAR; BILIRUBIN, URINE NEGATIVE (NEGATIVE); GLUCOSE, URINE (UA) NEGATIVE (NEGATIVE); KETONES,URINE 2+ (NEGATIVE); LEUKOCYTE ESTERASE ,URINE 1+ (NEGATIVE); NITRITE,URINE NEGATIVE (NEGATIVE); PH,URINE 6.5 (4.5-8.0); PROTEIN,URINE 1+ (NEGATIVE); UROBILINOGEN,URINE 1 MG/DL (0.0-1.0)
[2019-12-10 17:17] LABS: COLOR,URINE YELLOW
--- NOTE | 2019-12-10 17:34 | Diagnostic Imaging Report ---
Indication: Syncope, palpitations Technique: One view of the chest Comparison: 09/03/2019 Findings: Questionable patchy infiltrates are seen in the lung apices bilaterally. There is mild generalized interstitial prominence, similar to the prior exam and likely reflecting COPD type changes. The heart size is normal. Pleural spaces are clear Impression: Very questionable bilateral upper lobe infiltrates. Correlate with clinical findings
[2019-12-10 17:47] VITALS: BP 103/91
--- NOTE | 2019-12-10 18:15 | Consultation ---
DATE OF CONSULTATION: 12/10/2019 CONSULTING PHYSICIAN: Meryl Sharif MD. HISTORY OF PRESENT ILLNESS: This is a 64-year-old male with a history of alcohol dependence, depression, anxiety who has been admitted to the hospital for syncope and gait disturbance. Patient is intoxicated with alcohol. He stated he has suicidal thoughts. He recently had a suicide attempt and had a surgery. He was in psychiatric hospital in [facility] and is medically cleared. He lives in a hotel and is drinking alcohol on a daily basis. Patient is depressed. Has anxiety, hopelessness, helplessness. He is now being transferred to another hospital for medical stabilization. PAST PSYCHIATRIC HISTORY: Depression, anxiety. Has several psychiatric hospitalizations. Has a suicide attempt in the past by cutting self. ALLERGIES: Chart was reviewed. SUBSTANCE ABUSE HISTORY: Significant for using alcohol on a daily basis, drinks vodka on a daily basis. MENTAL STATUS EXAMINATION: Patient is alert, oriented times self, place, situation, and date. Mood is depressed. Affect is blunted, congruent with mood. Thought process is concrete. Thought content, no suicidal or homicidal ideation. Cognition is intact. Insight and judgment is fair. ASSESSMENT: Reading I Alcohol dependence. Major depressive disorder. Reading II Deferred. Reading III Syncope. Reading IV Homelessness. Reading V 40. PLAN: Patient will not be started on any psychotropic medication. He is still intoxicated. He will be transferred out to medical hospital. Patient is on a 5150. Patient is not an imminent danger to self or others. Meryl Sharif M.D. DR: LANRE JOB#: [id number] CC:
[2019-12-10] MEDS ORDERED: cefTRIAXone 1 GM in NS 55 ML IVPB ONE (18:45)
[2019-12-10 20:40] VITALS: BP 105/58
[2019-12-10 23:05] VITALS: BP 112/62
== END 2019-12-10 23:05 | disposition short-term general hospital (02) ==
LOC: EMR 14:20
DX: R55 Syncope and collapse (principal); R53.1 Weakness; R94.31 Abnormal electrocardiogram [ECG] [EKG]; F10.129 Alcohol abuse with intoxication, unspecified; F32.9 Major depressive disorder, single episode, unspecified; K21.9 Gastro-esophageal reflux disease without esophagitis; F29 Unspecified psychosis not due to a substance or known physiological condition; R45.851 Suicidal ideations; Z86.73 Personal history of transient ischemic attack (TIA), and cerebral infarction without residual deficits; F41.9 Anxiety disorder, unspecified; I10 Essential (primary) hypertension; Z86.19 Personal history of other infectious and parasitic diseases; G20 Parkinson's disease; G40.909 Epilepsy, unspecified, not intractable, without status epilepticus; R00.0 Tachycardia, unspecified
CPT/HCPCS: 36415; 70450; 71045; 80053; 80307; 81003; 82550; 83880; 84443; 84484; 85025; 85610; 85730; 96365; 96366; 96367; 96368; G0480; G0481; J0696; J7030; U0002; Z7502; 99291

== ENCOUNTER 2019-12-12 17:31 | Emergency (ER) | payer MEDICAID ==
[~2019-12-12] VITALS: Ht 172.7 cm; Wt 77.1 kg
--- NOTE | 2019-12-12 17:35 | NUR ---
ED Nurse Note: PT. BROUGHT IN BY RA 62 FROM HOME. PT. WAS FOUND WITH THE PHONE ON HIS CHEST. PT IS HERE FOR ETOH. ACCUCHECK EN ROUTE IS 88. PER EMS, PT. DENEIS SI OR HI. PT IS AOx4, CALM AND COOPERATIVE, (-) TREMORS/SWEAT/ANXIETY. VSS, on RA, AFEBRILE ON TRIAGE. PER NEIGHBORS, PT HAS BEEN CONSISTENTLY ALCOHOLIC, MENTIONED BY EMS. WILL CONTINUE TO MONITOR.
[2019-12-12 17:50] VITALS: BP 96/57
--- NOTE | 2019-12-12 17:50 | NUR ---
ED Nurse Note: snacks offered to pt.
--- NOTE | 2019-12-12 17:56 | NUR ---
ED Nurse Note: x-ray tech at bedside.
[2019-12-12 18:08] LABS: HEMATOCRIT 39.9 % (42.0-52.0); HEMOGLOBIN 13.4 G/DL (14.2-18.0); MEAN CORPUSCULAR VOLUME 96 FL (80-99); PLATELET COUNT 260 K/UL (150-450); RED BLOOD COUNT 4.15 M/UL (4.70-6.10); RED CELL DISTRIBUTION WIDTH 13.9 % (11.6-14.8)
[2019-12-12 18:11] LABS: APPEARANCE,URINE CLEAR; BILIRUBIN, URINE NEGATIVE (NEGATIVE); GLUCOSE, URINE (UA) NEGATIVE (NEGATIVE); KETONES,URINE NEGATIVE (NEGATIVE); LEUKOCYTE ESTERASE ,URINE 1+ (NEGATIVE); NITRITE,URINE NEGATIVE (NEGATIVE); PH,URINE 6.5 (4.5-8.0); PROTEIN,URINE 2+ (NEGATIVE); UROBILINOGEN,URINE NORMAL MG/DL (0.0-1.0)
--- NOTE | 2019-12-12 18:14 | Diagnostic Imaging Report ---
EXAM: XR Chest, 1 View CLINICAL HISTORY: PAIN TECHNIQUE: Frontal view of the chest. COMPARISON: 12/10/2019 FINDINGS: Lungs: Low lung volumes with bronchovascular crowding. No consolidation, pleural effusion, or pneumothorax. Pleural space: See above. Heart: Unremarkable. No cardiomegaly. Mediastinum: Unremarkable. Bones/joints: No acute abnormality IMPRESSION: 1. Low lung volumes with bronchovascular crowding. 2. Otherwise no acute cardiopulmonary disease. 3. If there is continued concern, recommend frontal and lateral chest radiographs or CT.
[2019-12-12 18:16] LABS: ANION GAP 13 mmol/L (5-15); BLOOD UREA NITROGEN 9 mg/dL (7-18); CALCIUM 8.9 MG/DL (8.5-10.1); CARBON DIOXIDE 26 MMOL/L (21-32); CHLORIDE 104 MMOL/L (98-107); POTASSIUM 3.5 MMOL/L (3.5-5.1); SODIUM 143 MMOL/L (136-145)
[2019-12-12 18:20] LABS: ALANINE AMINOTRANSFERASE 33 U/L (12-78); ALBUMIN 3.2 G/DL (3.4-5.0); ALBUMIN/GLOBULIN RATIO 0.9 (1.0-2.7); ALKALINE PHOSPHATASE 78 U/L (46-116); ASPARTATE AMINO TRANSFERASE 50 U/L (15-37); BILIRUBIN,TOTAL 0.2 MG/DL (0.2-1.0)
[2019-12-12 18:22] LABS: COLOR,URINE YELLOW
--- NOTE | 2019-12-12 19:09 | NUR ---
ED Nurse Note: report given to DINO Lovett for continuity of care.
--- NOTE | 2019-12-12 19:10 | NUR ---
ED Nurse Note: Report received from ISELA MILLER RN
--- NOTE | 2019-12-12 19:28 | Emergency Room Report ---
History of Present Illness General Chief Complaint: Alcohol Intoxication Source: EMS Present Illness HPI 64-year-old male with history of alcohol abuse brought in by paramedics due to alcohol abuse as well as calling 911 and reported that he has drank a lot of alcohol. Patient denies any suicidal or homicidal ideation upon arrival. Reports that he did not take his gabapentin and trazodone with alcohol. Patient was seen [place] [facility] 2 days ago due to alcohol intoxication and SI and was sent for admission to hospital. Patient is nonresponsive to my questions however has full range of motion of all extremities, alert and oriented and is requesting food upon arrival. Able to tolerate oral hydration. Denies other symptoms. Denies drug use, tobacco smoke, and other associate symptoms. Denies headache and dizziness, no slurred speech noted, is neurovascularly intact, denies any unilateral generalized weakness Allergies: Coded Allergies: No Known Allergies (Unverified , 02/11/14) COVID-19 Screening Contact w/high risk pt: No Recent Travel to affected area: No Experienced COVID-19 symptoms?: No COVID-19 Testing performed [employer]: No Patient History Past Medical History: see triage record Past Surgical History: unable to obtain Pertinent Family History: unable to obtain Social History: Reports: alcohol use Reviewed Nursing Documentation: PMH: Agreed; PSxH: Agreed Nursing Documentation-PMH Hx Hypertension: Yes Hx Pacemaker: No - HEP C Hx Asthma: Yes Hx Cancer: No Hx Gastrointestinal Problems: Yes History Of Psychiatric Problem: Yes - DEPRESSION Hx Neurological Problems: Yes Hx Parkinson's Disease: Yes Hx Seizures: Yes Review of Systems All Other Systems: negative except mentioned in HPI Physical Exam Vital Signs Date Time Temp Pulse Resp B/P (MAP) Pulse Ox O2 Delivery O2 Flow Rate FiO2 12/12/19 17:27 97.7 90 14 96/57 (70) 94 Nasal Cannula 4.0 Sp02 EP Interpretation: reviewed, normal General Appearance: no apparent distress, alert, GCS 15, non-toxic Head: normocephalic, atraumatic Eyes: bilateral eye normal inspection, bilateral eye PERRL ENT: hearing grossly normal, normal pharynx, no angioedema, normal voice Neck: full range of motion, supple/symm/no masses Respiratory: chest non-tender, lungs clear, normal breath sounds, no rhonchi, no respiratory distress, speaking full sentences Cardiovascular #1: regular rate, rhythm, no edema Cardiovascular #2: 2+ carotid (R), 2+ carotid (L), 2+ radial (R), 2+ radial (L) ; 3+ femoral (R) Gastrointestinal: normal bowel sounds, non tender, soft, non-distended, no guarding, no rebound Rectal: deferred Genitourinary: no CVA tenderness Musculoskeletal: back normal Neurologic: alert, motor strength/tone normal, oriented x3, sensory intact, responsive, speech normal Psychiatric: memory normal, mood/affect normal, no suicidal/homicidal ideation Skin: no rash Lymphatic: no adenopathy Medical Decision Making PA Attestation All diagnoses and treatment plans were reviewed and discussed with my supervising physician Dr. Hyman Diagnostic Impression: Primary Impression: Acute alcoholic intoxication Additional Impression: Infiltrate of lung present on chest x-ray ER Course 64-year-old male with history of alcohol abuse brought in by paramedics due to alcohol abuse as well as calling 911 and reported that he has drank a lot of alcohol. Patient denies any suicidal or homicidal ideation upon arrival. Reports that he did not take his gabapentin and trazodone with alcohol. Patient was seen [place] [facility] 2 days ago due to alcohol intoxication and SI and was sent for admission to hospital. Patient is nonresponsive to my questions however has full range of motion of all extremities, alert and oriented and is requesting food upon arrival. Able to tolerate oral hydration. Denies other symptoms. Denies drug use, tobacco smoke, and other associate symptoms. Denies headache and dizziness, no slurred speech noted, is neurovascularly intact, denies any unilateral generalized weakness Ddx considered but are not limited to: Alcohol intoxication with altered level of consciousness, alcohol intoxication causing pancreatitis, alcohol abuse, multi drug use and alcohol intoxication Vital signs: are WNL, pt. is afebrile H&PE are most consistent with: alcohol intoxication, infiltrate lung ORDERS: CBC, CMP, UA, tox screen, ETOH serum, CXR, lipase ER intervention: NS bolus, azithromycin I signed out the patient to Dr. Hyman at 8PM DISCHARGE: At this time pt. is stable for d/c to home. Will provide printed patient care instructions, and any necessary prescriptions. Care plan and follow up instructions have been discussed with the patient prior to discharge. Chest X-Ray Diagnostic Results Chest X-Ray Diagnostic Results : Chest X-Ray Ordered: Yes # of Views/Limited/Complete: 1 View Indication: Other EP Interpretation: Yes PA Xray: Interpretation reviewed, by supervising MD, and agrees with findings. Interpretation: no effusion, no pneumothorax, no acute cardiopulmonary disease, other - infiltrate RLL Impression: Other - infiltrate RLL Electronically Signed by: Raul Blakely PA-C Last Vital Signs Date Time Temp Pulse Resp B/P (MAP) Pulse Ox O2 Delivery O2 Flow Rate FiO2 12/12/19 17:50 90 14 Nasal Cannula 4.0 12/12/19 17:50 97.7 96/57 94 Referrals: [facility],REFERRING (PCP) Raul Posadas Dec 12, 2019 19:28
[2019-12-12] MEDS ORDERED: Azithromycin 500 MG in NS 275 ML IV ONE (19:30)
[2019-12-12] MEDS ORDERED: VITAMIN B-1100 MG ORAL (20:20)
--- NOTE | 2019-12-12 22:00 | NUR ---
ED Nurse Note: Food and drinks provided
--- NOTE | 2019-12-12 23:57 | NUR ---
ED Nurse Note: Patient resting on bed. Still unable to ambulate
[2019-12-13 00:31] VITALS: BP 127/85
== END 2019-12-13 00:33 | disposition home or self-care (01) ==
LOC: EDBD 17:31 → EMR 18:08
DX: F10.129 Alcohol abuse with intoxication, unspecified (principal); R91.8 Other nonspecific abnormal finding of lung field; I10 Essential (primary) hypertension; Z86.19 Personal history of other infectious and parasitic diseases; G20 Parkinson's disease; G40.909 Epilepsy, unspecified, not intractable, without status epilepticus
CPT/HCPCS: 36415; 71045; 80053; 80307; 81003; 83690; 84484; 85007; 85025; 96361; 96365; G0480; J0456; J7030; J7050; Z7502; 99284